=== PATIENT | female | born 1985 | race African-American/Black ===

== ENCOUNTER 2016-11-23 18:52 | Day surgery (SDC) | payer BC ==
[2016-11-23 19:47] VITALS: BMI 29.7
[2016-11-23] MEDS ORDERED: morphine CARPU-JECT 4 MG/1 ML DISP.SYRIN IVPUSH ONE (20:17)
[2016-11-23] MEDS ORDERED: SODIUM CHLORIDE 1,000 ML IV STA (20:17)
[2016-11-23] MEDS ORDERED: morphine CARPU-JECT 4 MG/1 ML DISP.SYRIN ONE (20:25)
[2016-11-23 20:34] LABS: URINE APPEARANCE CLEAR; URINE BILIRUBIN NEGATIVE (NEGATIVE); URINE BLOOD NEGATIVE (NEGATIVE); URINE COLOR LT. YELLOW; URINE GLUCOSE (UA) NEGATIVE (NEGATIVE); URINE KETONE NEGATIVE (NEGATIVE); URINE LEUK ESTERASE NEGATIVE (NEGATIVE); URINE NITRITE NEGATIVE (NEGATIVE); URINE PROTEIN NEGATIVE (NEGATIVE); URINE UROBILINOGEN 0.2 E.U/dl E.U./dl (0.2-1.0)
[2016-11-23 20:45] LABS: BASOPHIL 0.4 % (0-2.0); MCH 27.5 pg (25.7-33.7); MCHC 32.5 g/dl (32.0-36.0); MEAN CELL VOLUME 84.6 fl (80-96); MEAN PLT VOLUME 7.3 fl (7.5-11.1); NEUTROPHILS 38.7 % (42.8-82.8); PLATELET COUNT 408 K/MM3 (134-434); RDW 13.3 % (11.6-15.6)
[2016-11-23 21:14] LABS: ALBUMIN 3.7 g/dl (3.4-5.0); BILIRUBIN,TOTAL 0.2 mg/dL (0.2-1.0); CALCIUM 9.5 mg/dL (8.5-10.1); CREATININE 1.1 mg/dL (0.55-1.02); TOT PROT 7.5 g/dl (6.4-8.2)
--- NOTE | 2016-11-23 23:00 | PDOC ---
History of Present Illness - General History Source: Patient Exam Limitations: No Limitations - History of Present Illness Initial Comments: 11/23/16 23:08 The patient is a 31 year old female, with a significant past medical history of endometriosis and right sided ovarian cyst, who presents to the emergency department with right sided pelvic pain onset 3 days ago that worsened today. She states that the pain was onset gradually throughout the day. She reports that her pain is a constant, sharp pressure, ranging from mild to moderate, without radiation or modifying factors. She states that she took 4 tablets of ibuprofen, which has not helped her pain. She notes that this pain feels like her endometriosis. The patient denies chest pain, shortness of breath, headache and dizziness. Denies fever, chills, nausea, vomit, diarrhea and constipation. Denies dysuria, frequency, urgency and hematuria. LMP: 11/12/2016 Allergies: None Past surgical history: None reported Social history: No alcohol, tobacco or drug use reported <Rk Garcia - Last Filed: 11/24/16 00:17> - General History Source: Patient, Old Records Exam Limitations: No Limitations <PhamRayshawn - Last Filed: 11/24/16 00:36> - General Chief Complaint: Pain Stated Complaint: PELVIC PAIN Time Seen by Provider: 11/23/16 20:05 Past History <Rk Garcia - Last Filed: 11/24/16 00:17> - Past Medical History Anemia: No Asthma: No Cancer: No Cardiac Disorders: No CVA: No COPD: No CHF: No Dementia: No Diabetes: No GI Disorders: No Disorders: No HTN: No Hypercholesterolemia: No Liver Disease: No Seizures: No Thyroid Disease: No Other medical history: Endometreosis - Surgical History Abdominal Surgery: No Appendectomy: No Cardiac Surgery: No Cholecystectomy: No Lung Surgery: No Neurologic Surgery: No Orthopedic Surgery: No - Reproductive History Is Patient Now?: No - Immunization History Td Vaccination: Yes Immunization Up to Date: Yes - Psycho/Social/Smoking Cessation Hx Anxiety: No Suicidal Ideation: No Smoking Status: Yes Smoking History: Former smoker Have you smoked in the past 12 months: No Number of Cigarettes Smoked Daily: 0 If you are a former smoker, when did you quit?: 2013 Information on smoking cessation initiated: No 'Breaking Loose' booklet given: 02/17/15 Hx Alcohol Use: No Drug/Substance Use Hx: No Substance Use Type: None Hx Substance Use Treatment: No <PhamRayshawn - Last Filed: 11/24/16 00:36> - Past Medical History Allergies/Adverse Reactions: Allergies Allergy/AdvReac Type Severity Reaction Status Date / Time No Known Drug Allergies Allergy Verified 11/23/16 19:41 Home Medications: Ambulatory Orders Norethindrone-E.estradiol-Iron [Lo Loestrin Fe 1-10 Tablet] 1 tab PO HS Review of Systems - Review of Systems Able to Perform ROS?: Yes Comments:: 11/23/16 23:08 GENERAL/CONSTITUTIONAL: No fever or chills. No weakness. HEAD, EYES, EARS, NOSE AND THROAT: No change in vision. No ear pain or discharge. No sore throat. CARDIOVASCULAR: No chest pain or shortness of breath RESPIRATORY: No cough, wheezing, or hemoptysis. GASTROINTESTINAL: +Right sided pelvic pain. No nausea, vomiting, diarrhea or constipation. GENITOURINARY: No dysuria, frequency, or change in urination. MUSCULOSKELETAL: No joint or muscle swelling or pain. No neck or back pain. SKIN: No rash NEUROLOGIC: No headache, vertigo, loss of consciousness, or change in strength/ sensation. ENDOCRINE: No increased thirst. No abnormal weight change HEMATOLOGIC/LYMPHATIC: No anemia, easy bleeding, or history of blood clots. ALLERGIC/IMMUNOLOGIC: No hives or skin allergy. <Rk Garcia - Last Filed: 11/24/16 00:17> *Physical Exam - Vital Signs Last Vital Signs Temp Pulse Resp BP Pulse Ox 98.7 F 84 16 121/65 100 11/23/16 19:43 11/23/16 19:43 11/23/16 19:43 11/23/16 19:43 11/23/16 19:43 - Physical Exam Comments: 11/23/16 23:09 GENERAL: Awake, alert, and fully oriented, in no acute distress HEAD: No signs of trauma, normocephalic, atraumatic EYES: PERRLA, EOMI, sclera anicteric, conjunctiva clear ENT: Auricles normal inspection, hearing grossly normal, nares patent, oropharynx clear without exudates. Moist mucosa NECK: Normal ROM, supple, no lymphadenopathy, JVD, or masses LUNGS: No distress, speaks full sentences, clear to auscultation bilaterally HEART: Regular rate and rhythm, normal S1 and S2, no murmurs, rubs or gallops, peripheral pulses normal and equal bilaterally. ABDOMEN: +Right lower quadrant tenderness to palpation. Soft, normoactive bowel sounds. No guarding, no rebound. No masses EXTREMITIES: Normal inspection, Normal range of motion, no edema. No clubbing or cyanosis. NEUROLOGICAL: Cranial nerves II through XII grossly intact. Normal speech, normal gait, no focal sensorimotor deficits SKIN: Warm, Dry, normal turgor, no rashes or lesions noted. <Rk Garcia - Last Filed: 11/24/16 00:17> - Vital Signs Last Vital Signs Temp Pulse Resp BP Pulse Ox 98.7 F 84 16 121/65 100 11/23/16 19:43 11/23/16 19:43 11/23/16 19:43 11/23/16 19:43 11/23/16 19:43 <Rayshawn Nath - Last Filed: 11/24/16 00:36> ED Treatment Course - LABORATORY CBC & Chemistry Diagram: 11/23/16 20:20 11/23/16 20:20 - ADDITIONAL ORDERS Additional order review: Laboratory Results 11/23/16 11/23/16 20:20 20:10 Sodium 139 Potassium 3.7 Chloride 104 Carbon Dioxide 30 Anion Gap 5 L BUN 5 L D Creatinine 1.1 H D Creat Clearance w eGFR 58.32 Random Glucose 110 H D Calcium 9.5 Total Bilirubin 0.2 AST 7 L D ALT 22 Alkaline Phosphatase 47 Total Protein 7.5 Albumin 3.7 Urine Color Lt. yellow Urine Appearance Clear Urine pH 6.0 Ur Specific [place] <= 1.005 Urine Protein Negative Urine Glucose (UA) Negative Urine Ketones Negative Urine Blood Negative Urine Nitrite Negative Urine Bilirubin Negative Urine Urobilinogen 0.2 e.u/dl Ur Leukocyte Esterase Negative Urine HCG, Qual Negative 11/23/16 20:20 RBC 4.62 MCV 84.6 MCHC 32.5 RDW 13.3 D MPV 7.3 L Neutrophils % 38.7 L D Lymphocytes % 51.1 H D Monocytes % 7.8 Eosinophils % 2.0 Basophils % 0.4 - RADIOLOGY Radiograph Interpretation: 11/23/16 23:09 Transvaginal ultrasound Reviewed by: Dr. Raleigh Beasley Impression: Almost borderline thickening of the endometrial stripe. Left ovarian hypoechoic density measuring 2.9 x 2.7 cm likely representing a hemorrhagic cyst. CT abdomen and pelvis with contrast Reviewed by: Dr. Silvina Guadarrama Impression: Mildly dilated fluid-filled appendix seen in the right lower quadrant measuring up to 7.5 mm in diameter with surrounding fat stranding and right lower quadrant adenopathy. These findings can be seen in the setting of appendicitis. No abscess. No pneumoperitoneum. No bowel obstruction. Nonspecific fluid levels in the small and large bowel with prominence of the because. Correlate clinically 2 exclude concurrent enterocolitis. Small fat containing ventral hernia. There is a prominent 3.5 cm left adnexal cyst. Prominence of the endometrium with heterogeneous enhancement of the uterus. Correlate with menstrual cycle. - Medications Given in the ED: ED Medications Discontinued Medications Generic Name Dose Route Start Last Admin Trade Name Freq PRN Reason Stop Dose Admin Sodium Chloride 1,000 mls @ 1,000 mls/hr 11/23/16 20:17 11/23/16 20:30 Normal Saline - IV 11/23/16 21:16 1,000 mls/hr ASDIR STA Administration Morphine Sulfate 4 mg 11/23/16 20:17 11/23/16 20:30 Morphine Injection - IVPUSH 11/23/16 20:18 4 mg ONCE ONE Administration <Rk Garcia - Last Filed: 11/24/16 00:17> - LABORATORY CBC & Chemistry Diagram: 11/23/16 20:20 11/23/16 20:20 - ADDITIONAL ORDERS Additional order review: Laboratory Results 11/23/16 11/23/16 20:20 20:10 Sodium 139 Potassium 3.7 Chloride 104 Carbon Dioxide 30 Anion Gap 5 L BUN 5 L D Creatinine 1.1 H D Creat Clearance w eGFR 58.32 Random Glucose 110 H D Calcium 9.5 Total Bilirubin 0.2 AST 7 L D ALT 22 Alkaline Phosphatase 47 Total Protein 7.5 Albumin 3.7 Urine Color Lt. yellow Urine Appearance Clear Urine pH 6.0 Ur Specific [place] <= 1.005 Urine Protein Negative Urine Glucose (UA) Negative Urine Ketones Negative Urine Blood Negative Urine Nitrite Negative Urine Bilirubin Negative Urine Urobilinogen 0.2 e.u/dl Ur Leukocyte Esterase Negative Urine HCG, Qual Negative 11/23/16 20:20 RBC 4.62 MCV 84.6 MCHC 32.5 RDW 13.3 D MPV 7.3 L Neutrophils % 38.7 L D Lymphocytes % 51.1 H D Monocytes % 7.8 Eosinophils % 2.0 Basophils % 0.4 - RADIOLOGY Radiology Studies Ordered: Category Date Time Status ABDOMEN & PELVIS CT WITH CONTR [CT] Stat CT Scan 11/23/16 20:16 Taken TRANSVAGINAL ULTRASOUND US [US] Stat Ultrasound 11/23/16 20:16 Completed - Medications Given in the ED: ED Medications Discontinued Medications Generic Name Dose Route Start Last Admin Trade Name Freq PRN Reason Stop Dose Admin Sodium Chloride 1,000 mls @ 1,000 mls/hr 11/23/16 20:17 11/23/16 20:30 Normal Saline - IV 11/23/16 21:16 1,000 mls/hr ASDIR STA Administration Morphine Sulfate 4 mg 11/23/16 20:17 11/23/16 20:30 Morphine Injection - IVPUSH 11/23/16 20:18 4 mg ONCE ONE Administration <Rayshawn Nath - Last Filed: 11/24/16 00:36> Medical Decision Making - Medical Decision Making 11/23/16 22:58 A portion of this note was documented by scribe services under my direction. I have reviewed the details of the note, within reason, and agree with the documentation with the following case summary and management plan written by me. Patient treated in the ED. Nursing notes are reviewed and incorporated into the medical decision-making. Vital signs reviewed. Peripheral IV access obtained by the nurse, laboratory studies are drawn and sent, reviewed and interpreted by myself. Vital Signs Temp Pulse Resp BP Pulse Ox 98.7 F 84 16 121/65 100 11/23/16 19:43 11/23/16 19:43 11/23/16 19:43 11/23/16 19:43 11/23/16 19:43 31-year-old female with past medical history of endometriosis, ovarian cysts presents to the emergency department for right lower quadrant pain. Patient start develop a constant right lower quadrant pain without associated nausea or vomiting. No fevers or chills. Denies dysuria or vaginal bleeding. Patient is unsure if this is her cyst but reports that her last menstrual period was 2 weeks ago. I suspect that this is a ruptured ovarian cyst. However, with the right lower quadrant pain, we'll need to rule out acute appendicitis. We'll obtain a transvaginal ultrasound as well as a CT abdomen pelvis and treat with pain medications. Reassess. 11/24/16 00:25 Ultrasound reviewed. Appears to have a left sided hemorrhagic cyst. CT scan obtained. Demonstrates acute appendicitis. Zosyn ordered. Consultation placed in for Dr. Jose Patel. CBC, BMP 11/23/16 20:20 11/23/16 20:20 CMP Sodium 139 mmol/L (136-145) 11/23/16 20:20 Potassium 3.7 mmol/L (3.5-5.1) 11/23/16 20:20 Chloride 104 mmol/L (98-107) 11/23/16 20:20 Carbon Dioxide 30 mmol/L (21-32) 11/23/16 20:20 Anion Gap 5 (8-16) L 11/23/16 20:20 BUN 5 mg/dL (7-18) L D 11/23/16 20:20 Creatinine 1.1 mg/dL (0.55-1.02) H D 11/23/16 20:20 Creat Clearance w eGFR 58.32 (>60) 11/23/16 20:20 Random Glucose 110 mg/dL (74-106) H D 11/23/16 20:20 Calcium 9.5 mg/dL (8.5-10.1) 11/23/16 20:20 Total Bilirubin 0.2 mg/dL (0.2-1.0) 11/23/16 20:20 AST 7 U/L (15-37) L D 11/23/16 20:20 ALT 22 U/L (12-78) 11/23/16 20:20 Alkaline Phosphatase 47 U/L (45-117) 11/23/16 20:20 Total Protein 7.5 g/dl (6.4-8.2) 11/23/16 20:20 Albumin 3.7 g/dl (3.4-5.0) 11/23/16 20:20 Urine Test Results Urine Color Lt. yellow 11/23/16 20:10 Urine Appearance Clear 11/23/16 20:10 Urine pH 6.0 (5.0-8.0) 11/23/16 20:10 Ur Specific [place] <= 1.005 (1.001-1.035) 11/23/16 20:10 Urine Protein Negative (NEGATIVE) 11/23/16 20:10 Urine Glucose (UA) Negative (NEGATIVE) 11/23/16 20:10 Urine Ketones Negative (NEGATIVE) 11/23/16 20:10 Urine Blood Negative (NEGATIVE) 11/23/16 20:10 Urine Nitrite Negative (NEGATIVE) 11/23/16 20:10 Urine Bilirubin Negative (NEGATIVE) 11/23/16 20:10 Ur Leukocyte Esterase Negative (NEGATIVE) 11/23/16 20:10 Urine test is negative. Case discussed with Dr. Hanson, who accepts the patient to med/surg admission. Case discussed in detail with admitting physician including history, physical exam and ancillary studies. Admitting physician has assumed care for the patient, will follow all pending diagnostics and will complete the evaluation and treatment. <Rayshawn Nath - Last Filed: 11/24/16 00:36> *DC/Admit/Observation/Transfer - Attestations Scribe Attestion: 11/23/16 23:09 Documentation prepared by Rk Garcia, acting as medical director of hospice for Rayshawn Nath MD. <Rk Garcia - Last Filed: 11/24/16 00:17> - Discharge Dispostion Admit: Yes <Rayshawn Nath - Last Filed: 11/24/16 00:36> Diagnosis at time of Disposition: Appendicitis Qualifiers: Appendicitis type: acute appendicitis Acute appendicitis type: unspecified acute appendicitis type Qualified Code(s): K35.80 - Unspecified acute appendicitis - Discharge Dispostion Condition at time of disposition: Stable - Referrals Referrals: STAFF,NOT ON [Primary Care Provider] -
[2016-11-24] MEDS ORDERED: PIPERACILLIN/TAZOB 3.375 GM/50 ML PRE-DOCKED IVPB ONE (00:16)
--- NOTE | 2016-11-24 00:30 | PN ---
<Larry Hanson - Last Filed: 11/24/16 00:30> Teaching Attending Note Name of Resident: Estefanía Meza ATTENDING PHYSICIAN STATEMENT I saw and evaluated the patient. I reviewed the resident's note and discussed the case with the resident. I agree with the resident's findings and plan as documented. SUBJECTIVE: OBJECTIVE: ASSESSMENT AND PLAN: <Juan Fanke - Last Filed: 11/24/16 01:54> Teaching Attending Note ATTENDING PHYSICIAN STATEMENT I saw and evaluated the patient. I reviewed the resident's note and discussed the case with the resident. I agree with the resident's findings and plan as documented. SUBJECTIVE: The patient is a 31 year old female, with a significant past medical history of PCOS, endometriosis and right sided ovarian cyst, who presents to the emergency department with RLQ pain x3 days ago that worsened today. She states that the pain was onset gradually throughout the day. The patients states that she took motrin with minimal relief of her symptoms. The patient notes that her LMP was 11/12/16. OBJECTIVE: Physical: VS: Last Vital Signs Temp Pulse Resp BP Pulse Ox 98.6 F 80 20 118/74 100 11/24/16 00:00 11/24/16 00:00 11/24/16 00:00 11/24/16 00:00 11/24/16 00:00 GEN: NAD HEENT: NCAT, PERRL CARD: RRR, S1 S2 RESP: CTAB ABD: RLQ tenderness to palpation, BWS x4 EXT: CCE Labs: CBCD WBC 9.0 K/mm3 (4.0-10.0) 11/23/16 20:20 RBC 4.62 M/mm3 (3.60-5.2) 11/23/16 20:20 Hgb 12.7 GM/dL (10.7-15.3) 11/23/16 20:20 Hct 39.1 % (32.4-45.2) 11/23/16 20:20 MCV 84.6 fl (80-96) 11/23/16 20:20 MCHC 32.5 g/dl (32.0-36.0) 11/23/16 20:20 RDW 13.3 % (11.6-15.6) D 11/23/16 20:20 Plt Count 408 K/MM3 (134-434) 11/23/16 20:20 MPV 7.3 fl (7.5-11.1) L 11/23/16 20:20 CMP Sodium 139 mmol/L (136-145) 11/23/16 20:20 Potassium 3.7 mmol/L (3.5-5.1) 11/23/16 20:20 Chloride 104 mmol/L (98-107) 11/23/16 20:20 Carbon Dioxide 30 mmol/L (21-32) 11/23/16 20:20 Anion Gap 5 (8-16) L 11/23/16 20:20 BUN 5 mg/dL (7-18) L D 11/23/16 20:20 Creatinine 1.1 mg/dL (0.55-1.02) H D 11/23/16 20:20 Creat Clearance w eGFR 58.32 (>60) 11/23/16 20:20 Calcium 9.5 mg/dL (8.5-10.1) 11/23/16 20:20 Total Bilirubin 0.2 mg/dL (0.2-1.0) 11/23/16 20:20 AST 7 U/L (15-37) L D 11/23/16 20:20 ALT 22 U/L (12-78) 11/23/16 20:20 Alkaline Phosphatase 47 U/L (45-117) 11/23/16 20:20 Total Protein 7.5 g/dl (6.4-8.2) 11/23/16 20:20 Albumin 3.7 g/dl (3.4-5.0) 11/23/16 20:20 Imaging: CT Abdomen Impression: Mildly dilated fluid-filled appendix seen in the right lower quadrant measuring up to 7.5 mm in diameter with surrounding fat stranding and right lower quadrant adenopathy. These findings can be seen in the setting of appendicitis. No abscess. No pneumoperitoneum. No bowel obstruction. Nonspecific fluid levels in the small and large bowel with prominence of the because. Correlate clinically 2 exclude concurrent enterocolitis. Small fat containing ventral hernia. ASSESSMENT AND PLAN: The patient is a 31 year old female, with a significant past medical history of endometriosis and right sided ovarian cyst, who presents to the emergency department with right sided pelvic pain. 1.Acute appendicitis -NPO -IVF -Type and screen -Continue Zosyn -ID consult for approval -Pain control -Put in coag for AM -Repeat CBC in AM 2.Left sided cyst -outpatient OB follow up 3.DVD PPX -Low risk -SCD Admit to med surg Documentation prepared by Bam Fan, acting as medical observer for Larry Hanson D.O.
[2016-11-24] MEDS ORDERED: morphine CARPU-JECT 2 MG/1 ML DISP.SYRIN IVPUSH PRN (01:08)
[2016-11-24] MEDS ORDERED: SODIUM CHLORIDE 1,000 ML IV SCH ×2 (01:15→14:04)
[2016-11-24] MEDS ORDERED: PIPERACILLIN/TAZOB 3.375 GM 50 ML IVPB ONE ×2 (01:36→14:04)
--- NOTE | 2016-11-24 01:47 | HP ---
CHIEF COMPLAINT: Abdominal pain PCP: HISTORY OF PRESENT ILLNESS: The patient is a 31 year old female with a past medical history of endometriosis , PCOS and left sided ovarian cyst presents with RLQ abdominal pain that started today in the morning. The pain is sharp, intermittent, 8-10/10, no radiation, no aggravating/alleviating factors. She took OTC pain medications without any improvement. She states that this pain feels like her endometriosis pain but is much more severe. The patient denies N/V, diarrhea, constipation, change in stool color. Last BM was today and it was normal. Her LMP was two weeks ago, regular 4-5 days. She denies dysuria, increased frequency , urgency, fever, chills. ER course was notable for: (1)CT abdomen, (2)transvaginal US Recent Travel: No PAST MEDICAL HISTORY: endometriosis, PCOS, left sided ovarian cyst:laparoscopic removal in January 2016 PAST SURGICAL HISTORY: laparoscopy Social History: Smoking:quit 3 years ago, smoked 1 pack/month Alcohol:Denies Drugs:Denies Family History: Father: DM type 2, HTN, HLD, on dialysis, in 2015 Mother; healthy Allergies: No Known Drug Allergies Allergy (Verified 11/23/16 19:41) HOME MEDICATIONS: Medication Instructions Recorded Norethindrone-E.estradiol-Iron [Lo 1 tab PO HS 01/13/16 Loestrin Fe 1-10 Tablet] Metformin Spironolactone 1 tab BID 1 tab BID REVIEW OF SYSTEMS CONSTITUTIONAL: Absent: fever, chills, diaphoresis, generalized weakness, malaise, loss of appetite, weight change HEENT: Absent: rhinorrhea, nasal congestion, throat pain, throat swelling, difficulty swallowing, mouth swelling, ear pain, eye pain, visual changes CARDIOVASCULAR: Absent: chest pain, syncope, palpitations, irregular heart rate, lightheadedness , peripheral edema RESPIRATORY: Absent: cough, shortness of breath, dyspnea with exertion, orthopnea, wheezing, stridor, hemoptysis GASTROINTESTINAL: abdominal pain Absent: abdominal distension, nausea, vomiting, diarrhea, constipation, melena, hematochezia GENITOURINARY: Absent: dysuria, frequency, urgency, hesitancy, hematuria, flank pain, genital pain MUSCULOSKELETAL: Absent: myalgia, arthralgia, joint swelling, back pain, neck pain SKIN: Absent: rash, itching, pallor HEMATOLOGIC/IMMUNOLOGIC: Absent: easy bleeding, easy bruising, lymphadenopathy, frequent infections ENDOCRINE: Absent: unexplained weight gain, unexplained weight loss, heat intolerance, cold intolerance NEUROLOGIC: Absent: headache, focal weakness or paresthesias, dizziness, unsteady gait, seizure, mental status changes, bladder or bowel incontinence PSYCHIATRIC: Absent: anxiety, depression, suicidal or homicidal ideation, hallucinations. PHYSICAL EXAMINATION Vital Signs - 24 hr 11/23/16 19:43 Temperature 98.7 F Pulse Rate 84 Respiratory 16 Rate Blood Pressure 121/65 O2 Sat by Pulse 100 Oximetry (%) GENERAL: Awake, alert, and fully oriented, in no acute distress. HEAD: Normal with no signs of trauma. EYES: Pupils equal, round and reactive to light, extraocular movements intact, sclera anicteric, conjunctiva clear. No lid lag. EARS, NOSE, THROAT: Ears normal, nares patent, oropharynx clear without exudates. Moist mucous membranes. NECK: Normal range of motion, supple without lymphadenopathy, JVD, or masses. LUNGS: Breath sounds equal, clear to auscultation bilaterally. No wheezes, and no crackles. No accessory muscle use. HEART: Regular rate and rhythm, normal S1 and S2 without murmur, rub or gallop. ABDOMEN: Soft, tender to palpation in RLQ, no guarding, Rovsing sign negative, not distended, normoactive bowel sounds, no rebound, no masses. No hepatomegaly or splenomegaly. MUSCULOSKELETAL: Normal range of motion at all joints. No bony deformities or tenderness. No CVA tenderness. UPPER EXTREMITIES: 2+ pulses, warm, well-perfused. No cyanosis. No clubbing. Cap refill <2 seconds. No peripheral edema. LOWER EXTREMITIES: 2+ pulses, warm, well-perfused. No calf tenderness. No peripheral edema. NEUROLOGICAL: Cranial nerves II-XII intact. Normal speech. Normal gait. PSYCHIATRIC: Cooperative. Good eye contact. Appropriate mood and affect. SKIN: Warm, dry, normal turgor, no rashes or lesions noted, tattoo on lower back present. Laboratory Results - last 24 hr 11/23/16 11/23/16 11/23/16 20:10 20:20 20:20 WBC 9.0 RBC 4.62 Hgb 12.7 Hct 39.1 MCV 84.6 MCHC 32.5 RDW 13.3 D Plt Count 408 MPV 7.3 L Neutrophils % 38.7 L D Lymphocytes % 51.1 H D Monocytes % 7.8 Eosinophils % 2.0 Basophils % 0.4 Sodium 139 Potassium 3.7 Chloride 104 Carbon Dioxide 30 Anion Gap 5 L BUN 5 L D Creatinine 1.1 H D Creat Clearance w eGFR 58.32 Random Glucose 110 H D Calcium 9.5 Total Bilirubin 0.2 AST 7 L D ALT 22 Alkaline Phosphatase 47 Total Protein 7.5 Albumin 3.7 Urine Color Lt. yellow Urine Appearance Clear Urine pH 6.0 Ur Specific [place] <= 1.005 Urine Protein Negative Urine Glucose (UA) Negative Urine Ketones Negative Urine Blood Negative Urine Nitrite Negative Urine Bilirubin Negative Urine Urobilinogen 0.2 e.u/dl Ur Leukocyte Esterase Negative Urine HCG, Qual Negative CT abdomen/pelvis: Mildly dilated fluid-filled appendix seen in the right lower quadrant measuring up to 7.5 mm in diameter with surrounding fat stranding and right lower quadrant adenopathy. These findings can be seen in the setting of appendicitis. No abscess. No pneumoperitoneum. No bowel obstruction. Nonspecific fluid levels in the small and large bowel with prominence of the because. Correlate clinically 2 exclude concurrent enterocolitis. Small fat containing ventral hernia. There is a prominent 3.5 cm left adnexal cyst. Prominence of the endometrium with heterogeneous enhancement of the uterus. Correlate with menstrual cycle. Transvaginal US: Almost borderline thickening of the endometrial stripe.. Left ovarian hypoechoic density measuring 2.9 x 2.7 cm likely representing a hemorrhagic cyst. Follow-up pelvis ultrasound in first week of the next menstrual cycle is recommended for further evaluation ASSESSMENT/PLAN: The patient is a 31 year old female with a past medical history of endometriosis , PCOS and left sided ovarian cyst presents with RLQ abdominal pain that started today in the morning. The pain is sharp, intermittent, 8-10/10, no radiation, no aggravating/alleviating factors. She took OTC pain medications without any improvement. The pt is admitted for appendicitis. RLQ abdominal pain due to appendicitis: -pain control: Morphine 2 mg Q4H -surgery consultation -ID consultation -NPO -coags in Am -CBC, BMP in AM -continue Zosyn 3.375 mg -NS at rate 125 ml/hr Left sided ovarian cyst: -f/u in outpatient FUR CLIPPER DVT PPX: -SCDs F/E/N: NS/No changes/NPO Disposition: Admission to Med surg. Visit type - Emergency Visit Emergency Visit: Yes Care time: The patient presented to the Emergency Department on the above date and was hospitalized for further evaluation of their emergent condition. - New Patient This patient is new to me today: Yes Date on this admission: 11/24/16 - Critical Care Critical Care patient: No
[2016-11-24] MEDS ORDERED: PIPERACILLIN/TAZOB 3.375 GM 3.375 GM in DEXTROSE 5%-WATER - 50 ML IVPB ONE (06:00)
[2016-11-24 07:33] LABS: MCH 29.1 pg (25.7-33.7); MCHC 34.4 g/dl (32.0-36.0); MEAN CELL VOLUME 84.4 fl (80-96); MEAN PLT VOLUME 7.3 fl (7.5-11.1); PLATELET COUNT 332 K/MM3 (134-434); RDW 13.4 % (11.6-15.6); WHITE BLOOD COUNT 5.4 K/mm3 (4.0-10.0)
[2016-11-24 08:09] LABS: INR 1.09 (0.82-1.09)
[2016-11-24 08:18] LABS: CALCIUM 8.9 mg/dL (8.5-10.1); CREATININE 1.1 mg/dL (0.55-1.02)
--- NOTE | 2016-11-24 10:54 | CONSULT ---
Consult Consult Specialty:: surgery Reason for Consultation:: appendicitis - History of Present Illness Chief Complaint: RLQ pain History of Present Illness: pt is a 31F with 1 day hx of RLQ pain. No N/V/D. No fever/chills. hungry. Hx of cyst and workup in ED included CT which shows appendicitis. patient has hx of endometriosis. - History Source History Provided By: Patient Limitations to Obtaining History: No Limitations - Past Medical History Reproductive: Yes: Endometriosis, Polycystic Ovary Syndrome ...LMP: 11/13/16 ...: No - Alcohol/Substance Use Hx Alcohol Use: No (very occassional) - Smoking History Smoking history: Former smoker Have you smoked in the past 12 months: No Aproximately how many cigarettes per day: 0 If you are a former smoker, when did you quit?: 2013 Home Medications - Allergies Allergies/Adverse Reactions: Allergies Allergy/AdvReac Type Severity Reaction Status Date / Time No Known Drug Allergies Allergy Verified 11/23/16 19:41 - Home Medications Home Medications: Ambulatory Orders Norethindrone-E.estradiol-Iron [Lo Loestrin Fe 1-10 Tablet] 1 tab PO HS Metformin HCl [Glucophage -] 500 mg PO BID 11/24/16 Spironolactone 25 mg PO BID 11/24/16 Family Disease History - Family Disease History Family Disease History: Other: Father (, esrd, htn) Review of Systems - Review of Systems Constitutional: denies: Chills, Fever Eyes: denies: Blind Spots, Blurred Vision HENT: denies: Difficult Swallowing, Ear Discharge Neck: denies: Decreased ROM, Lumps Cardiovascular: denies: Chest Pain, Edema Respiratory: denies: Cough, Exercise Intolerance Gastrointestinal: reports: Abdominal Pain. denies: Melena, Nausea Genitourinary: denies: Discharge, Dysuria Breasts: denies: Pain, Skin Changes Musculoskeletal: denies: Back Pain, Crepitus Integumentary: denies: Blister, Bruising Neurological: denies: Change in LOC, Change in Speech Endocrine: denies: Excessive Sweating, Flushing Hematology/Lymphatic: denies: Easily Bruised, Excessive Bleeding Psychiatric: denies: Altered Sleep Pattern, Anxiety Physical Exam Vital Signs: Vital Signs Temperature 98.7 F 11/24/16 09:55 Pulse Rate 69 11/24/16 09:55 Respiratory Rate 16 11/24/16 09:55 Blood Pressure 144/89 11/24/16 09:55 O2 Sat by Pulse Oximetry (%) 99 11/24/16 10:18 Constitutional: Yes: No Distress, Calm Eyes: Yes: Conjunctiva Clear, EOM Intact HENT: Yes: Atraumatic, Normocephalic Neck: Yes: Supple, Trachea Midline Cardiovascular: Yes: Regular Rate and Rhythm Respiratory: Yes: Regular, CTA Bilaterally Gastrointestinal: Yes: Soft, Tenderness (rlq/ llq . min mild guarding). No: Distention ...Rectal Exam: Yes: Deferred Renal/: No: CVA Tenderness - Left, CVA Tenderness - Right Breast(s): No: Breast Implants, Mass Musculoskeletal: No: Back Pain, Joint Stiffness Extremities: No: Calf Tenderness, Erythema Integumentary: No: Erythema, Rash Neurological: Yes: Alert, Oriented Psychiatric: Yes: Alert, Oriented Labs: CBC, BMP 11/24/16 06:25 11/24/16 06:25 Imaging - Results Cat Scan: Report Reviewed, Image Reviewed Problem List - Problems (1) Appendicitis Assessment/Plan: for lap appy r/b/a d/w pt likely d/c home postop postop instructions given to mom f/u 1-2 weeks will give rx for pain meds Code(s): K37 - UNSPECIFIED APPENDICITIS Qualifiers: Appendicitis type: acute appendicitis Acute appendicitis type: unspecified acute appendicitis type Qualified Code(s): K35.80 - Unspecified acute appendicitis (2) Ovarian cyst Code(s): N83.20 - UNSPECIFIED OVARIAN CYSTS * DO NOT USE * (3) Polycystic ovary disease Code(s): E28.2 - POLYCYSTIC OVARIAN SYNDROME (4) Endometriosis Code(s): N80.9 - ENDOMETRIOSIS, UNSPECIFIED
[2016-11-24] MEDS ORDERED: LIDOCAINE HCL/PF 2% SDV 5ML VIAL ONE (10:56)
[2016-11-24] MEDS ORDERED: PROPOFOL 20 ML ONE ×2 (10:57→11:00)
[2016-11-24] MEDS ORDERED: ROCURONIUM BROMIDE 50 MG/5 ML VIAL ONE (10:57)
[2016-11-24] MEDS ORDERED: MIDAZOLAM HCL 2 MG/2 ML SINGLE DOSE VIAL ONE (10:57)
[2016-11-24] MEDS ORDERED: DEXAMETHASONE SOD PHOSPHATE 4 MG/1 ML VIAL ONE (11:15)
[2016-11-24] MEDS ORDERED: GLYCOPYRROLATE 0.2 MG/1 ML VIAL ONE ×2 (11:31)
[2016-11-24] MEDS ORDERED: NEOSTIGMINE METHYLSULFATE 0.5 MG/ML - 10 ML MDV ONE (11:31)
[2016-11-24] MEDS ORDERED: KETOROLAC TROMETHAMINE 30 MG/1 ML VIAL ONE (11:46)
[2016-11-24] MEDS ORDERED: OXYCODONE/APAP 5/325MG COMBO TABLET PO PRN ×2 (12:11)
[2016-11-24] MEDS ORDERED: ONDANSETRON 4 MG/2 ML VIAL IVPB PRN (12:12)
--- NOTE | 2016-11-24 12:14 | OP ---
Operative Note - Note: Operative Date: 11/24/16 Pre-Operative Diagnosis: appendicitis Operation: laparoscopic appendectomy Findings: min mild inflammed appendix Post-Operative Diagnosis: Same as Pre-op Surgeon: Jose Patel Anesthesia: General Specimens Removed: appendix Estimated Blood Loss (mls): 20 Operative Report Dictated: Yes
--- NOTE | 2016-11-24 12:15 | DS ---
Physical Exam: SUBJECTIVE: Patient seen and examined per procedure. Stated the pain medication reduced pain to 5/10. Prepared for surgery. Mother at bedside. OBJECTIVE: Vital Signs Period Temp Pulse Resp BP Sys/Patiño Pulse Ox Last 24 Hr 98.1 F-98.7 F 69-75 16-18 113-144/70-89 99-100 PE Neuro: alert, awake, cn 2-12intact Pulm: CTAB CV: s1 s2 rrr no mrg Abd: RLQ tenderness, tenderness to palpation, soft Ext: warm, no edema Laboratory Results - last 24 hr 11/24/16 11/24/16 11/24/16 06:20 06:25 06:25 WBC 5.4 D RBC 4.11 Hgb 12.0 Hct 34.7 MCV 84.4 MCHC 34.4 RDW 13.4 Plt Count 332 MPV 7.3 L INR 1.09 PTT (Actin FS) 28.0 Sodium Potassium Chloride Carbon Dioxide Anion Gap BUN Creatinine Random Glucose Calcium Blood Type Antibody Screen 11/24/16 11/24/16 06:25 06:25 WBC RBC Hgb Hct MCV MCHC RDW Plt Count MPV INR PTT (Actin FS) Sodium 143 Potassium 4.2 Chloride 110 H Carbon Dioxide 24 Anion Gap 9 BUN 6 L Creatinine 1.1 H Random Glucose 89 Calcium 8.9 Blood Type B POSITIVE Antibody Screen Negative HOSPITAL COURSE: Date of Admission:11/24/16 Date of Discharge: 11/24/16 Minutes to complete discharge: 35 Discharge Summary Reason For Visit: APPENDICITIS Current Active Problems Appendicitis (Acute) Endometriosis (Acute) Hospital Course: Initial Hospital Course: Briefly this 31 year old female with a past medical history of endometriosis, PCOS (on metformin and spirnolactone) and left sided ovarian cyst presented with RLQ abdominal pain which acute started in the AM of admission. The pain was sharp, intermittent, 8-10/10, no radiation, no aggravating/alleviating factors. She took OTC pain medications without any improvement. The pain felt like her endometriosis pain but was much more severe. Unchanged BM. Her LMP was two weeks ago, regular 4-5 days. Hospital Course: Pt was taken to or for laproscopic appendectomy 11/24. Minimal mild inflamed appendix noted. She was give x1 dose of zosyn in ED. No antibiotics on discharge. Home with pain mediation and surgical follow up up in 1-[address] Patel. Resume home medications as directed with PCP follow up in 1-2 weeks Condition: Good - Instructions Diet, Activity, Other Instructions: regular diet okay. can shower tomorrow on 11/25. no heavy lifting of 30lbs x 3 weeks. call office to make f/u appt for 1-2 weeks from now . please take laxatives with pain medication. Referrals: Jose Patel MD [Staff Physician] - STAFF,NOT ON [Primary Care Provider] - 3 Weeks (EXTRUDER OPERATOR HORIZONTAL followup [facility]) - Home Medications Comprehensive Discharge Medication List: Ambulatory Orders Norethindrone-E.estradiol-Iron [Lo Loestrin Fe 1-10 Tablet] 1 tab PO HS Metformin HCl [Glucophage -] 500 mg PO BID 11/24/16 Oxycodone HCl/Acetaminophen [Percocet 5-325 mg Tablet] 1 tab PO Q4H PRN #30 tablet MDD 6 tabs 11/24/16 Spironolactone 25 mg PO BID 11/24/16 This patient is new to me today: Yes Date on this admission: 11/24/16 Emergency Visit: Yes Care time: The patient presented to the Emergency Department on the above date and was hospitalized for further evaluation of their emergent condition. Critical Care patient: No - Discharge Referral Referred to [facility] No
[2016-11-24] MEDS ORDERED: PROMETHAZINE HCL 25 MG/1 ML VIAL IVPUSH PRN (12:25)
[2016-11-24] MEDS ORDERED: ACETAMINOPHEN 1000 MG/100 ML VIAL (NON FORMULARY) IVPB PRN (12:26)
[2016-11-24] MEDS ORDERED: HYDROmorphone HCL CARPU-JECT 2 MG/1 ML DISP.SYRIN ONE (12:26)
[2016-11-24] MEDS: HYDROmorphone HCL CARPU-JECT 1 MG/1 ML DISP.SYRIN IVPUSH PRN ×2 (12:28→13:15)
[2016-11-24] MEDS ORDERED: LACTATED RINGERS SOLUTION 1,000 ML IV SCH (12:30)
--- NOTE | 2016-11-24 12:50 | OP ---
DATE OF OPERATION: 11/24/2016 PREOPERATIVE DIAGNOSIS: Appendicitis. POSTOPERATIVE DIAGNOSIS: Appendicitis. SURGEON: Teddy Patel MD ANESTHESIA: General endotracheal anesthesia. BLOOD LOSS: Minimal blood loss, approximately 20 mL. OPERATIVE DETAILS: The patient was brought to the operating room after confirming name, date of , medical record number. She was placed in supine position. SCDs for DVT prophylaxis. She was then induced and intubated by the anesthesiologist. She received appropriate perioperative antibiotics. Her left arm was then tucked and padded. She then had a Joshi catheter placed under sterile conditions. She was then prepped and draped in the usual sterile fashion. A time-out was then performed. A 1-inch supraumbilical incision was made and I bluntly dissected down to the fascia. I scored the fascia with electrocautery and then grabbed the posterior sheath with Annika clamps and lifted the abdominal wall anteriorly. I then cut through it with electrocautery and then used a Annika clamp to go the peritoneum. I then placed my finger inside the abdomen and performed a finger sweep and then placed a 12-mm balloon Eddie type trocar inside the abdomen, insufflated the abdomen to a pressure of 15 mmHg. I then placed a 5-mm trocar in the suprapubic region and 1 in the left lower quadrant. The patient was then placed in Trendelenburg position with some right side up. At this point I was able to gently rotate the cecum and I was able to find a minimally swollen appendix. Given that there was no other pathology, the decision was then made to dissect at the base of the appendix with the [place] dissector and then enlarge this hole with a bowel grasper and then I was able to fit a blue load stapler and take it right at the base of the appendix after taking care not to injure the ileocecal valve. Once the base of the appendix was taken, I then took the mesentery of the appendix with a white load stapler. The specimen was then placed in a specimen retrieval bag and sent off the field for permanent examination. Upon examination, despite a good firing of the stapler, there was some bleeding between renny and this was controlled with 5-mm clips on the mesentery and on the suture line of the colon. After irrigation and aspiration and complete hemostasis, the decision was then made to desufflate the abdomen, remove the specimen, and then close the supraumbilical fascia with a [id number] 0 Vicryl suture. I then reapproximated the skin and subcutaneous tissues with 4-0 Monocryl. Dermabond was then applied. All counts were correct. The Joshi catheter was removed at the end of the operation. TEDDY PATEL M.D. PORSCHE/[id number]
[2016-11-24] MEDS ORDERED: ACETAMINOPHEN 325 MG TABLET (FP) ONE (14:38)
[2016-11-24] MEDS ORDERED: oxyCODONE HCL 5 MG TABLET ONE (14:38)
[2016-11-24] MEDS ORDERED: ACETAMINOPHEN 325 MG TABLET (FP) PO PRN ×2 (15:12→15:13)
[2016-11-24] MEDS ORDERED: oxyCODONE HCL 5 MG TABLET PO PRN ×2 (15:12→15:13)
[2016-11-24 15:37] VITALS: BP 117/77; PULSE 80
[2016-11-24 15:45] VITALS: TEMP 98.8
--- NOTE | 2016-11-28 15:32 | PATH ---
Surgical Pathology Report Patient Name: SKIP WALLER [facility]. Rec. #: [id number] /Age/Gender: 1985 (Age: 31) / F Account: [id number] Location: AMBULATORY SURG Taken: 11/24/2016 Received: 11/24/2016 Reported: 11/28/2016 Physicians: MD Renea Rocha, EJ Specimen(s) Received APPENDIX Clinical History Appendicitis Final Diagnosis APPENDIX, APPENDECTOMY: INVOLVEMENT BY ENDOMETRIOSIS OF THE APPENDIX TIP. Comment: Immunohistochemical stains performed at [place], [place] ([id number]) and interpreted at [facility] show positive staining for ER and CD10, supporting the interpretation above. Electronically Signed Alexandr Beckford M.D. Gross Description Received in formalin, labeled "appendix" is a 5 cm in length vermiform appendix with a stapled margin of resection and moderate attached fat. The serosa is nguyen-pink and smooth. Sectioning reveals a possible mass at the distal tip of the appendix. The remaining cut surface displays a lumen containing brown fecal material. The wall of the appendix averages 0.2 cm. in thickness. Promotions Representative sections are submitted in 2 cassettes as follows: 1-bisected distal tip of appendix; 2-cross sections of appendix. 11/24/201611/24/2016
== END 2016-11-24 15:45 | disposition home or self-care (01) ==
LOC: JER 18:52 → UNDOADMIN 11-24 01:21 → JERBED 11-24 01:21 → JASUSAT 11-24 01:21 → JSAMEDAYSX 11-24 10:09 → JERBED 11-24 10:09 → JASUSAT 11-24 15:45
PROVIDERS: ATTEND Surgery
PROC: 0DTJ4ZZ Resection of Appendix, Percutaneous Endoscopic Approach (ICD-10-PCS; principal; 2016-11-24 10:30)
DX: K37 Unspecified appendicitis (principal)
CPT/HCPCS: 36415; 74177-TC; 76830-TC; 80048; 80053; 81003; 84703; 85025; 85027; 85610; 85730; 86850; 86900; 86901; 87086; 88304-TC; 94760; 99283-25

== ENCOUNTER 2018-09-13 13:52 | Inpatient (IN) | payer BC ==
[2018-09-13 16:10] LABS: URINE APPEARANCE CLEAR; URINE BILIRUBIN NEGATIVE (<2.0 mg/dL); URINE COLOR LTYELLOW; URINE GLUCOSE (UA) NEGATIVE (NEGATIVE); URINE KETONE NEGATIVE (NEGATIVE); URINE LEUK ESTERASE NEGATIVE (NEGATIVE); URINE NITRITE NEGATIVE (NEGATIVE); URINE PROTEIN NEGATIVE (NEGATIVE); URINE UROBILINOGEN NEGATIVE mg/dL (0.2-1.0)
[2018-09-13] MEDS ORDERED: TUBERCULIN PPD 5 TU/0.1ML SYRINGE (IN PATIENT USE ONLY) ID ONE (16:29)
[2018-09-13 16:53] VITALS: BMI 33.3
[2018-09-13] MEDS ORDERED: DINOPROSTONE 10 MG VAGINAL SUPPOSITORY VG ONE (17:15)
[2018-09-13 19:06] LABS: BASO % 0.3 % (0-2.0); EOS % 0.8 % (0-4.5); HEMATOCRIT 35.9 % (32.4-45.2); HEMOGLOBIN 11.9 GM/dL (10.7-15.3); LYMPH % 26.1 % (8-40); MCH 27.9 pg (25.7-33.7); MCHC 33.2 g/dl (32.0-36.0); MEAN CELL VOLUME 84.1 fl (80-96); MEAN PLT VOLUME 6.9 fl (7.5-11.1); MONO % 10.2 % (3.8-10.2); NEUT % 62.6 % (42.8-82.8); PLATELET COUNT 347 K/MM3 (134-434); RBC 4.27 M/mm3 (3.60-5.2); RDW 14.9 % (11.6-15.6); RETICULOCYTES 1.54 % (0.5-1.5); WHITE BLOOD COUNT 7.3 K/mm3 (4.0-10.0)
[2018-09-13 19:30] LABS: ALBUMIN 2.3 g/dl (3.4-5.0); ALK PHOS 169 U/L (45-117); ANION GAP 14 MMOL/L (8-16); BILIRUBIN,TOTAL 0.3 mg/dL (0.2-1); BLOOD UREA NITROGEN 4 mg/dL (7-18); CALCIUM 8.5 mg/dL (8.5-10.1); CHLORIDE 108 mmol/L (98-107); CO2 17 mmol/L (21-32); CREATININE 0.6 mg/dL (0.55-1.3); GAMMA GLUTAMYL TRANSPEPTIDASE 8 U/L (5-85); GLUCOSE,RANDOM 100 mg/dL (74-106); POTASSIUM 3.4 mmol/L (3.5-5.1); SGOT/AST 14 U/L (15-37); SGPT/ALT 23 U/L (13-61); SODIUM 139 mmol/L (136-145); TOT PROT 5.8 g/dl (6.4-8.2); URIC ACID 4.5 mg/dL (2.6-7.2)
[2018-09-13 19:47] LABS: INR 0.96 (0.83-1.09); PROTHROMBIN TIME (PATIENT) 11.3 SEC (9.7-13.0)
[2018-09-13 19:50] LABS: ACTIVATED PTT 27.1 SECONDS (25.2-36.5)
[2018-09-13] MEDS ORDERED: BUTORPHANOL TARTRATE 1 MG/ML VIAL IVPUSH ONE (21:15)
[2018-09-13] MEDS ORDERED: PROMETHAZINE HCL 25 MG/1 ML VIAL IVPUSH ONE (21:15)
--- NOTE | 2018-09-13 21:21 | HP ---
Past Medical History - Primary Care Physician PCP:: Desmond Coleman - Admission Chief Complaint: 40.4 weeks, postdate, cervidil induction History of Present Illness: 33 yo f g 2 p0010 edc by sono with labile HTN admitted for cervidil induction, cervidil risks ,ultrnatives , c/s discussed , agreed to have cervidil induction vc external os 1 FT, internal closed, vx -3 mi, fhr cat 1, irregular contraction not felt by patient History Source: Patient Limitations to Obtaining History: No Limitations - Past Medical History ...: 2 ...Para: 0 ...Term: 0 ...: 0 ...Spon : 1 ...Induced : 0 ...Multiple Gestation: 0 ...LMP: 12/05/17 ... Weeks Gestation by Dates: 40.1 ...EDC by Dates: 09/11/18 ...EDC by Sono: 09/09/18 - Past Surgical History Past Surgical History: Yes: Appendectomy, Cystectomy (multiple laparoscopic ovarian cystectomy for endometriosis) Hx Myomectomy: No Hx Transabdominal Cerclage: No - Smoking History Smoking history: Former smoker Have you smoked in the past 12 months: No Aproximately how many cigarettes per day: 0 If you are a former smoker, when did you quit?: 4.5 years ago - Alcohol/Substance Use Hx Alcohol Use: No - Social History History of Recent Travel: No Home Medications - Allergies Allergies/Adverse Reactions: Allergies Allergy/AdvReac Type Severity Reaction Status Date / Time No Known Drug Allergies Allergy Verified 09/13/18 14:45 - Home Medications Home Medications: Ambulatory Orders Vitamins (Sjr) - 1 tab PO DAILY 05/25/18 Ferrous Sulfate [Feosol] 1 tab PO DAILY 09/13/18 Family Disease History - Family Disease History Family Disease History: Other: Father (, esrd, htn) Review of Systems - Review of Systems Constitutional: reports: No Symptoms Eyes: reports: No Symptoms HENT: reports: No Symptoms Neck: reports: No Symptoms Cardiovascular: reports: No Symptoms Respiratory: reports: No Symptoms Gastrointestinal: reports: No Symptoms Genitourinary: reports: No Symptoms Breasts: reports: No Symptoms Reported Musculoskeletal: reports: No Symptoms Integumentary: reports: No Symptoms Neurological: reports: No Symptoms Endocrine: reports: No Symptoms Hematology/Lymphatic: reports: No Symptoms Psychiatric: reports: No Symptoms Physical Exam - Maternity Vital Signs: Vital Signs Temperature 97.8 F 09/13/18 18:00 Pulse Rate 93 H 09/13/18 21:00 Respiratory Rate 18 09/13/18 21:00 Blood Pressure 137/83 09/13/18 21:00 O2 Sat by Pulse Oximetry (%) Constitutional: Yes: Well Nourished, No Distress Eyes: Yes: WNL HENT: Yes: WNL Neck: Yes: WNL Cardiovascular: Yes: WNL Lungs: Clear to auscultation Breast(s): Yes: WNL - Abdominal Exam/OB Fundal Height: 40 Number of Fetuses: Single Presentation: Vertex Contractions: Yes Regularity: Irritability Intensity: Unaware Monitor Mode: External Heart Rate Location: [facility] Category: I Accelerations: Uniform Decelerations: None - Vaginal Exam/OB Vaginal Bleediing: No Speculum Exam: No Dilatation (cm): closed Effacement (%): 0 Amniotic Membrane Status: Intact Presentation: Vertex/Position Station: -3 - Physical Exam Musculoskeletal: Yes: WNL Extremities: Yes: WNL Edema: No Edema: LLE: Trace, RLE: Trace Deep Tendon Reflex Grade: Normal +2 ...Motor Strength: WNL Psychiatric: Yes: WNL - Labs Lab Results: CBC, BMP 09/13/18 18:30 09/13/18 18:30 Hemorrhage Risk Assessment - Risk Factors Medium Risk Factors: Yes: None High Risk Factors: Yes: None Risk Score: 1 Risk Level: Medium Risk Problem List - Problems (1) Post term over 40 weeks Code(s): O48.0 - POST-TERM (2) Elective induction of labor planned Code(s): FXT1442 - (3) Labile hypertension Code(s): R09.89 - OTH SYMPTOMS AND SIGNS INVOLVING THE CIRC AND RESP SYSTEMS Assessment/Plan admit for cervidil induction, risks discussed GBS negative FHM
--- NOTE | 2018-09-13 21:29 | PN ---
Progress Note (short form) - Note Progress Note: cx closed vx -3 mi, fhr cat 1, cervidil inserted at 915 pm bp 137/83, HELLP lab negative , asymptomatic Problem List - Problems (1) Post term over 40 weeks Code(s): O48.0 - POST-TERM (2) Elective induction of labor planned Code(s): GBU7849 - (3) Labile hypertension Code(s): R09.89 - OTH SYMPTOMS AND SIGNS INVOLVING THE CIRC AND RESP SYSTEMS
[2018-09-14] MEDS ORDERED: DEXTROSE 5%-LACTATED RINGERS 500 ML IV ONE (04:00)
[2018-09-14] MEDS: DEXTROSE 5%-LACTATED RINGERS 1,000 ML IV SCH ×2 (05:00→06:28)
[2018-09-14] MEDS ORDERED: PROMETHAZINE HCL 25 MG/1 ML VIAL ONE ×2 (05:18→15:26)
[2018-09-14] MEDS ORDERED: BUTORPHANOL TARTRATE 1 MG/ML VIAL ONE ×4 (05:18→15:26)
[2018-09-14] MEDS: OXYTOCIN 30 UNITS in 0.9% NS 30 UNIT/500 ML INFUS.BAG IVPB SCH (06:50)
--- NOTE | 2018-09-14 06:53 | PN ---
Progress Note (short form) - Note Progress Note: cx closed , long , vx -3 mi, fhr cat 1, irregular contraction, ,cervidil removed , pitocin rba discussed, will start on pit Problem List - Problems (1) Post term over 40 weeks Code(s): O48.0 - POST-TERM (2) Elective induction of labor planned Code(s): JNT8333 - (3) Labile hypertension Code(s): R09.89 - OTH SYMPTOMS AND SIGNS INVOLVING THE CIRC AND RESP SYSTEMS
[2018-09-14] MEDS ORDERED: PROMETHAZINE HCL 25 MG/1 ML VIAL IVPB ONE (18:45)
[2018-09-14] MEDS ORDERED: BUTORPHANOL TARTRATE 1 MG/ML VIAL IVPUSH ONE (18:45)
[2018-09-15] MEDS: DEXTROSE 5%-LACTATED RINGERS 1,000 ML IV SCH ×2 (01:13→14:37)
[2018-09-15] MEDS ORDERED: BUTORPHANOL TARTRATE 1 MG/ML VIAL IVPUSH ONE (02:45)
[2018-09-15] MEDS ORDERED: PROMETHAZINE HCL 25 MG/1 ML VIAL IVPUSH ONE (02:45)
[2018-09-15] MEDS ORDERED: BUTORPHANOL TARTRATE 1 MG/ML VIAL ONE ×2 (04:33)
[2018-09-15] MEDS ORDERED: PROMETHAZINE HCL 25 MG/1 ML VIAL ONE (04:33)
[2018-09-15] MEDS ORDERED: OXYTOCIN 30 UNITS in 0.9% NS 30 UNIT/500 ML INFUS.BAG IVPB ONE (04:58)
[2018-09-15] MEDS: OXYTOCIN 30 UNITS in 0.9% NS 30 UNIT/500 ML INFUS.BAG IVPB SCH (08:00)
[2018-09-15] MEDS ORDERED: ELECTROLYTE-148 SOLN 1,000 ML IV SCH (08:40)
--- NOTE | 2018-09-15 08:47 | PN ---
Ante-Partal Exam - Subjective Subjective: Patient comfortable No complaints Vital Signs: Vital Signs Temperature 98.7 F 09/15/18 08:00 Pulse Rate 76 09/15/18 08:00 Respiratory Rate 20 09/15/18 08:00 Blood Pressure 107/59 L 09/15/18 08:00 O2 Sat by Pulse Oximetry (%) Bleeding: No Headache: No Visual changes: No Right upper quadrant pain: No - Contractions Contractions: Yes Regularity: Irregular - Exam during Labor Category: I Monitor Accelerations: Absent Monitor Decelerations: None Exam: Vaginal Dilatation (cm): 0.5 Amniotic Membrane Status: Intact Station: -4 - Intrapartum Hemorrhage Risk Medium Risk Factors: None High Risk Factors: None Risk Score: 0 Risk Level: Low Risk - Assessment/Plan Assessment/Plan: 33 yo induction of labor Unchanged cervical exam. Failed nascimento balloon attempt overnight. Currently on pitocin, currently at 12. Discussed options of continuing with induction, attempting nascimento balloon again or delivery. Patient desires to proceed with delivery Discussed risks including but not limited to infection, bleeding requiring transfusion and damage to surrounding organs such as the bowel or bladder. Discussed risk of injury to . Discussed risk of wound infection and separation. Discussed need for planning of future children and possibility of abnormal placentation. All questions answered. Patient expressed understanding. Nursing and OR staff notified. Will proceed to OR
[2018-09-15] MEDS ORDERED: OXYTOCIN 20 UNITS in 0.9% NS 20 UNIT/1,000 ML INFUS.BAG IV ONE (09:25)
[2018-09-15] MEDS ORDERED: OXYTOCIN 20 UNITS in 0.9% NS 40 UNIT/2,000 ML INFUS.BAG IV ONE (09:30)
[2018-09-15] MEDS ORDERED: ceFAZolin SODIUM 1 GM VIAL ONE (09:33)
[2018-09-15] MEDS ORDERED: morphine SULFATE/Preservative Free 0.5 MG/ML (1cc Syringe) ONE (09:33)
[2018-09-15] MEDS ORDERED: PROPOFOL 20 ML ONE (09:33)
[2018-09-15] MEDS ORDERED: ePHEDrine SULFATE 50 MG/1 ML AMPULE ONE (10:22)
[2018-09-15 11:16] LABS: ARTERIAL BLD GAS O2 SATURATION 20.4 % (90-98.9); ARTERIAL BLOOD GAS BASE EXCESS -4.3 meq/l (-2-2); ARTERIAL BLOOD GAS PCO2 66.3 mmHg (35-45); ARTERIAL BLOOD GAS PO2 16.5 mmHg (80-100); ARTERIAL BLOOD GAS pH 7.2 (7.35-7.45)
[2018-09-15 11:22] LABS: VENOUS PC02 50.1 mmHg (38-52); VENOUS PH 7.31 (7.32-7.42); VENOUS PO2 20.8 mmHg (28-48)
[2018-09-15] MEDS ORDERED: METHYLERGONOVINE MALEATE 0.2 MG/1 ML AMP IM PRN (11:23)
[2018-09-15] MEDS ORDERED: SENNOSIDES/DOCUSATE COMBO (SENNA PLUS) TABLET (UD) PO PRN (11:23)
[2018-09-15] MEDS ORDERED: BENZOCAINE 20% 57 GM BOTTLE TP PRN (11:23)
[2018-09-15] MEDS ORDERED: oxyCODONE HCL 5 MG TABLET PO PRN (11:23)
[2018-09-15] MEDS ORDERED: WITCH HAZEL 50% (TUCKS) 40 PAD/JAR PAD TP PRN (11:23)
--- NOTE | 2018-09-15 11:34 | PN ---
Delivery - Delivery Section: Primary EBL (cc): 700 Delivery, Single - Condition of Infant Gender: Female Position: OP - 1 Minute Total Score: 9 5 Minutes Total Score: 9 - Feeding Plan Initial Plan: Exclusive throughout hospitalization Remarks - Remarks Remarks: Surgeon: Nikita; Assist: Guilherme; Anesthesia: Martin Findings: Female infant, OP position, 9,9; wt 10 lbs; 20 inches; Left ovary not identified, right ovary normal EBL 700; UOP 100; IVFluids 2.2 L Dictation: [id number]
[2018-09-15] MEDS ORDERED: ONDANSETRON 4 MG/2 ML VIAL IVPUSH PRN (11:36)
[2018-09-15] MEDS ORDERED: morphine SULFATE/Preservative Free 0.5 MG/ML (1cc Syringe) IT ONE (11:36)
[2018-09-15] MEDS: OXYTOCIN 20 UNITS in 0.9% NS 20 UNIT/1,000 ML INFUS.BAG IV SCH ×2 (12:48→20:30)
[2018-09-15] MEDS: IBUPROFEN 800 MG/8 ML IJ IVPB PRN (20:41)
[2018-09-16] MEDS: DEXTROSE 5%-LACTATED RINGERS 1,000 ML IV SCH (04:25)
[2018-09-16] MEDS: IBUPROFEN 800 MG/8 ML IJ IVPB PRN (07:45)
[2018-09-16] MEDS: SIMETHICONE 80 MG TAB.CHEW (FP) PO PRN ×2 (07:46→15:51)
[2018-09-16 07:54] LABS: BASO % 0.2 % (0-2.0); EOS % 0.9 % (0-4.5); HEMOGLOBIN 11.1 GM/dL (10.7-15.3); LYMPH % 13.7 % (8-40); MCH 30.2 pg (25.7-33.7); MCHC 35.8 g/dl (32.0-36.0); MEAN CELL VOLUME 84.4 fl (80-96); MEAN PLT VOLUME 6.8 fl (7.5-11.1); MONO % 10.6 % (3.8-10.2); NEUT % 74.6 % (42.8-82.8); PLATELET COUNT 343 K/MM3 (134-434); RBC 3.67 M/mm3 (3.60-5.2); RDW 15.1 % (11.6-15.6); WHITE BLOOD COUNT 9.9 K/mm3 (4.0-10.0)
--- NOTE | 2018-09-16 07:58 | PN ---
Post Progress Note - Subjective Subjective: Patient without acute complaints. Tolerating clears, without complaints of nausea or vomiting. No ambulation yet. Denies fevers or chills. without difficulty Pain well controlled Joshi removed this AM, voided without issues. Denies flatus. Post Day: 1 Type of Delivery: Primary C/S Vital Signs: Vital Signs Temperature 99.3 F 09/16/18 03:55 Pulse Rate 94 H 09/16/18 03:55 Respiratory Rate 19 09/16/18 03:55 Blood Pressure 128/75 09/16/18 03:55 O2 Sat by Pulse Oximetry (%) Breast Exam: Yes: Engorged Uterus: Yes: Fundus Firm Incision: Yes: Dressing dry and intact Abdomen/GI: Yes: Abdomen soft, Tender (mild incisional), Passing flatus, Tolerating PO Lochia: Yes: Serosa Lochia, amount: Small Extremities: Yes: Calves non-tender, Edema (trace) Activity: Ambulating - Labs Labs: CBC WBC 7.3 K/mm3 (4.0-10.0) 09/13/18 18:30 RBC 4.27 M/mm3 (3.60-5.2) 09/13/18 18:30 Hgb 11.9 GM/dL (10.7-15.3) 09/13/18 18:30 Hct 35.9 % (32.4-45.2) 09/13/18 18:30 MCV 84.1 fl (80-96) 09/13/18 18:30 MCH 27.9 pg (25.7-33.7) 09/13/18 18:30 MCHC 33.2 g/dl (32.0-36.0) 09/13/18 18:30 RDW 14.9 % (11.6-15.6) D 09/13/18 18:30 Plt Count 347 K/MM3 (134-434) 09/13/18 18:30 MPV 6.9 fl (7.5-11.1) L 09/13/18 18:30 Absolute Neuts (auto) 4.6 K/mm3 (1.5-8.0) 09/13/18 18:30 Neutrophils % 62.6 % (42.8-82.8) D 09/13/18 18:30 Lymphocytes % 26.1 % (8-40) D 09/13/18 18:30 Monocytes % 10.2 % (3.8-10.2) 09/13/18 18:30 Eosinophils % 0.8 % (0-4.5) 09/13/18 18:30 Basophils % 0.3 % (0-2.0) 09/13/18 18:30 Nucleated RBC % 0 % (0-0) 09/13/18 18:30 Retic Count 1.54 % (0.5-1.5) H 09/13/18 18:30 Haptoglobin 134 mg/dL (34-200) 09/13/18 18:30 Assessment/Plan 33 yo POD # 1 s/p primary CD, afebrile, vital signs stable, doing well 1. Continue routine postoperative care. 2. Follow up AM CBC 3. Rh positive status, no rhogam indicated. 4. Encourage ambulation and incentive spirometer use 5. Continue oral pain medication 6. Anticipate discharge home postoperative day #3 or #4
--- NOTE | 2018-09-16 08:03 | PN ---
Progress Note (short form) - Note Progress Note: ANESTHESIOLOGY POST-OP CHECK 33F s/p under spinal anesthesia POD #1. No acute complaints, pain minimal, denies N/V, BA/PEÑALOZA, numbness, wekness Vital Signs Temperature 99.3 F 09/16/18 03:55 Pulse Rate 94 H 09/16/18 03:55 Respiratory Rate 19 09/16/18 03:55 Blood Pressure 128/75 09/16/18 03:55 O2 Sat by Pulse Oximetry (%) Active Medications Acetaminophen (Tylenol -) 650 mg PO Q4H PRN PRN Reason: PAIN Benzocaine (Americaine 20% [place] -) 1 spray TP PRN PRN PRN Reason: Pain - Topical Bisacodyl (Dulcolax Suppository -) 10 mg RC PRN PRN PRN Reason: CONSTIPATION Diphenhydramine HCl (Benadryl Injection -) 25 mg IVPUSH Q4H PRN PRN Reason: Pruritis Last Admin: 09/16/18 00:00 Dose: 25 mg Enoxaparin Sodium (Lovenox -) 30 mg SQ DAILY TED Ibuprofen (Motrin -) 600 mg PO Q4H PRN PRN Reason: PAIN LEVEL 1 - 3 Ibuprofen (Caldolor Injection -) 800 mg IVPB Q8H PRN PRN Reason: PAIN LEVEL 1-5 Last Admin: 09/16/18 07:45 Dose: 800 mg Methylergonovine Maleate (Methergine Injection -) 0.2 mg IM Q4H PRN PRN Reason: Excessive Bleeding (L&D) Ondansetron HCl (Zofran Injection) 4 mg IVPUSH Q4H PRN PRN Reason: NAUSEA Oxycodone HCl (Roxicodone -) 5 mg PO Q4H PRN PRN Reason: PAIN LEVEL 4 - 6 Multivit/Folic Acid/Iron ( Vitamins (Sjr) -) 1 tab PO DAILY TED Senna/Docusate Sodium (Pericolace -) 2 tablet PO HS PRN PRN Reason: CONSTIPATION Simethicone (Mylicon -) 80 mg PO Q4H PRN PRN Reason: GAS Last Admin: 09/16/18 07:46 Dose: 80 mg Witch Sabrina/Glycerin (Tucks Pads -) 1 pad TP PRN PRN PRN Reason: Pain - Topical Gen: awake, alert, NAD Ext. No motor or sensory deficits of B/L lower extremities No apparent anesthesia complications. Pain controlled. Continue management as per primary team.
[2018-09-16] MEDS: PRENATAL VITAMINS W/ FOLIC ACID TABLET (FP) PO SCH (10:10)
[2018-09-16] MEDS: ENOXAPARIN NA (PORCINE) 30 MG/0.3 ML DISP.SYRIN SQ SCH (11:00)
[2018-09-16] MEDS ORDERED: BISACODYL 10 MG SUPP.RECT RC PRN (11:23)
[2018-09-16] MEDS: ACETAMINOPHEN 325 MG TABLET (FP) PO PRN (15:50)
[2018-09-16] MEDS: IBUPROFEN 600 MG TABLET (FP) PO PRN (15:50)
--- NOTE | 2018-09-16 16:38 | OP ---
DATE OF OPERATION: 09/15/2018 PREOPERATIVE DIAGNOSIS: Intrauterine at 40-plus weeks, failed induction of labor. POSTOPERATIVE DIAGNOSIS: Intrauterine at 40-plus weeks, failed induction of labor. SURGEON: Tomasa Shelton MD FLOOR NURSE: Thomas Vanegas MD ANESTHESIA: Martin Martin MD FINDINGS: Female , OP position, Apgars 9 and 9, weight 10 pounds even, 20 inches length. Left ovary not identified, right ovary appears normal. ESTIMATED BLOOD LOSS: 700. URINE OUTPUT: 100. IV FLUIDS: 2.2 L. The patient is a 33-year-old with a history of labile blood pressures at 40-plus weeks for induction of labor. She is status post Cervidil and then Pitocin and did not make any progress. The head was high station. She was counseled regarding surgical intervention or continuing with induction. She desired surgical intervention. She was counseled regarding risks, benefits, alternatives, and complications of procedure including infection, bleeding, damage to surrounding organs such as bowel, bladder, ureter. She expressed understanding and was brought to the operating room. When anesthesia was found to be adequate, patient was prepped and draped in normal sterile fashion, placed in dorsal supine position, leftward tilt. An approximately 11-cm skin incision was made with a knife and carried down to the underlying rectus muscle using Bovie electrocautery. The fascia was nicked in midline, extended laterally using Morgan scissors. Attention was brought to the inferior portion, which was tented up using Jose clamps, dissected off underlying rectus muscle using Morgan scissors. Attention was brought to the superior portion, where in a similar fashion, it was tented up using Jose clamps, dissected off underlying rectus muscles using Morgan scissors. The rectus muscles were in midline, peritoneum was entered bluntly. The peritoneal incision was extended superiorly and inferiorly using the Morgan scissors. Hysterotomy was performed with a knife and the infant's head was found to be in OP position. The infant's head was brought to the hysterotomy site and the head was delivered, followed by shoulders and body without difficulty. The cord was clamped and cut, cord blood and cord gases were collected and sent. The was handed to waiting NICU staff. The placenta was removed. The uterus was cleared of all clot and debris. The uterus was closed using 0 Biosyn in running layers. The 2nd layer was an imbricated layer. Good hemostasis was noted. Bilateral gutters were cleared of all clot and debris. The left adnexa was difficult to identify. Right adnexa revealed a normal-appearing ovary. The hysterotomy was then examined and found to be hemostatic. The peritoneum was closed using 2-0 Biosyn in running fashion. The rectus muscles were reapproximated using 0 Vicryl in an interrupted fashion. The fascia was closed using 0 Vicryl in running fashion. Subcutaneous fat was closed using 0 Vicryl. The skin was reapproximated using 3-0 Vicryl. The patient tolerated the procedure well. Estimated blood loss was 700 mL. The patient was brought to recovery room in stable condition. Fariba [id number]
[2018-09-17] MEDS: SIMETHICONE 80 MG TAB.CHEW (FP) PO PRN ×3 (04:04→17:12)
[2018-09-17] MEDS: IBUPROFEN 600 MG TABLET (FP) PO PRN ×3 (04:04→17:12)
[2018-09-17] MEDS: ACETAMINOPHEN 325 MG TABLET (FP) PO PRN ×3 (04:04→17:13)
--- NOTE | 2018-09-17 07:50 | PN ---
Post Progress Note - Subjective Subjective: Patient without acute complaints. Reports tolerating oral intake without nausea or vomiting. Ambulating without dizziness. Denies fevers or chills. Pain well controlled with oral pain medication. without difficulty. Passing flatus. Post Day: 2 Type of Delivery: Primary C/S Vital Signs: Vital Signs Temperature 98.4 F 09/16/18 21:41 Pulse Rate 81 09/16/18 21:41 Respiratory Rate 19 09/16/18 21:41 Blood Pressure 126/72 09/16/18 21:41 O2 Sat by Pulse Oximetry (%) Breast Exam: Yes: Soft Uterus: Yes: Fundus Firm Incision: Yes: Dressing dry and intact Abdomen/GI: Yes: Abdomen soft, Tender (mild incisional), Passing flatus, Tolerating PO Lochia: Yes: Serosa Extremities: Yes: Calves non-tender, Edema (trace) Activity: Ambulating - Labs Labs: CBC WBC 9.9 K/mm3 (4.0-10.0) 09/16/18 07:00 RBC 3.67 M/mm3 (3.60-5.2) 09/16/18 07:00 Hgb 11.1 GM/dL (10.7-15.3) 09/16/18 07:00 Hct 31.0 % (32.4-45.2) L 09/16/18 07:00 MCV 84.4 fl (80-96) 09/16/18 07:00 MCH 30.2 pg (25.7-33.7) 09/16/18 07:00 MCHC 35.8 g/dl (32.0-36.0) 09/16/18 07:00 RDW 15.1 % (11.6-15.6) 09/16/18 07:00 Plt Count 343 K/MM3 (134-434) 09/16/18 07:00 MPV 6.8 fl (7.5-11.1) L 09/16/18 07:00 Absolute Neuts (auto) 7.4 K/mm3 (1.5-8.0) 09/16/18 07:00 Neutrophils % 74.6 % (42.8-82.8) 09/16/18 07:00 Lymphocytes % 13.7 % (8-40) D 09/16/18 07:00 Monocytes % 10.6 % (3.8-10.2) H 09/16/18 07:00 Eosinophils % 0.9 % (0-4.5) 09/16/18 07:00 Basophils % 0.2 % (0-2.0) 09/16/18 07:00 Nucleated RBC % 0 % (0-0) 09/16/18 07:00 Retic Count 1.54 % (0.5-1.5) H 09/13/18 18:30 Haptoglobin 134 mg/dL (34-200) 09/13/18 18:30 Assessment/Plan 33 yo POD # 2 s/p primary CD, afebrile, vital signs stable, doing well 1. Continue routine postoperative care. 2. Encourage ambulation and incentive spirometer use 3. Continue oral pain medication 4. Anticipate discharge home postoperative day #3 or #4
[2018-09-17] MEDS: ENOXAPARIN NA (PORCINE) 30 MG/0.3 ML DISP.SYRIN SQ SCH (10:00)
[2018-09-17] MEDS: PRENATAL VITAMINS W/ FOLIC ACID TABLET (FP) PO SCH (10:21)
[2018-09-17 21:06] VITALS: PULSE 81
[2018-09-18] MEDS: IBUPROFEN 600 MG TABLET (FP) PO PRN ×2 (00:13→08:16)
[2018-09-18] MEDS: ACETAMINOPHEN 325 MG TABLET (FP) PO PRN ×2 (00:14→08:19)
--- NOTE | 2018-09-18 08:07 | DS ---
Physical Exam-STOCKHOLDER Vital Signs: Vital Signs Temperature 97.9 F 09/17/18 21:05 Pulse Rate 81 09/17/18 21:05 Respiratory Rate 19 09/17/18 21:05 Blood Pressure 131/84 09/17/18 21:05 O2 Sat by Pulse Oximetry (%) Constitutional: Yes: Well Nourished, No Distress, Calm Eyes: Yes: WNL, Conjunctiva Clear, EOM Intact HENT: Yes: WNL, Atraumatic, Normocephalic Neck: Yes: WNL, Supple, Trachea Midline Cardiovascular: Yes: WNL, Regular Rate and Rhythm Respiratory: Yes: WNL, Regular, CTA Bilaterally Gastrointestinal: Yes: WNL, Normal Bowel Sounds, Soft Renal/: Yes: WNL Pelvis: Yes: WNL External Genitalia: Yes: Normal ....Post : Yes: Uterus firm, Uterus non-tender Breast(s): Yes: WNL Musculoskeletal: Yes: WNL Extremities: Yes: WNL Integumentary: Yes: WNL Wound/Incision: Yes: Clean/Dry, Well Approximated Neurological: Yes: WNL, Alert, Oriented ...Motor Strength: WNL Psychiatric: Yes: WNL, Alert, Oriented Labs: CBC, BMP 09/16/18 07:00 09/13/18 18:30 Delivery - Delivery Section: Primary Type of Anesthesia: Spinal Episiotomy/Laceration: None EBL (cc): 700 Delivery, Single - Stages of Labor Date 1st Stage Initiatied: 09/15/18 Time 1st Stage Initiated: 05:50 Date of Delivery: 09/15/18 Time of Delivery: 10:45 Time Placenta Delivered: 10:47 Placenta: Yes: Expressed - Condition of Infant Strength And Conditioning Coach/Director Presales Present: Yes Name: Geetha Baez Gender: Female Weight: 10 lb Position: OP Total Hours ROM (Hrs/Mins): 1 min. - 1 Minute Total Score: 9 5 Minutes Total Score: 9 - Feeding Plan Initial Plan: Exclusive throughout hospitalization Discharge Summary Reason For Visit: LABOR Current Active Problems Elective induction of labor planned (Acute) Labile hypertension (Acute) Post term over 40 weeks (Acute) Condition: Good - Instructions Diet, Activity, Other Instructions: Physical activity Resume your normal everyday activity as tolerated no heavy lifting or exercise until seen by your surgeon. You may walk unlimited liliana of and climb stairs. You may resume driving the car when you feel safe and comfortable behind the wheel. No sexual activity as instructed. Wound care If you have a bandage, leave it on, and keep dry for 48-72 hours. After that time discard the outer bandage. If they are tapes on the skin under the out of bandage leave them in place. They will peel off in the next 7 to 10 days. Do Not Peel them off. You may shower the day after surgery. If there are tapes present on the skin, you may shower over them. Diet There are no dietary restrictions. Eat healthy, high-fiber foods. Drink 6 to 8 glasses of liquid each day. This will assist in keeping your bowels are regular. Pain management You may take Tylenol or acetaminophen or Ibuprofen (for example, Motrin, Advil etc.) from my pain prescription medication is ordered should be taken as prescribed for moderate to severe pain. Call MD for any of the following: Severe pain not relieved by medication Fever of 101 or higher Excessive bleeding or drainage on dressing Inability to urinate Referrals: Desmond Coleman MD [Staff Physician] - Disposition: HOME - Home Medications Comprehensive Discharge Medication List: Ambulatory Orders Ferrous Sulfate [Feosol] 1 tab PO DAILY 09/13/18 Vitamins (Sjr) - 1 tab PO DAILY 09/14/18
[2018-09-18 08:16] LABS: BASO % 0.6 % (0-2.0); EOS % 4.3 % (0-4.5); HEMATOCRIT 26.3 % (32.4-45.2); HEMOGLOBIN 8.7 GM/dL (10.7-15.3); MCH 27.9 pg (25.7-33.7); MCHC 33.3 g/dl (32.0-36.0); MEAN CELL VOLUME 83.9 fl (80-96); MEAN PLT VOLUME 6.4 fl (7.5-11.1); MONO % 10.2 % (3.8-10.2); NEUT % 54.9 % (42.8-82.8); PLATELET COUNT 318 K/MM3 (134-434); RBC 3.13 M/mm3 (3.60-5.2); WHITE BLOOD COUNT 5.2 K/mm3 (4.0-10.0)
[2018-09-18] MEDS: SIMETHICONE 80 MG TAB.CHEW (FP) PO PRN (08:19)
[2018-09-18] MEDS: PRENATAL VITAMINS W/ FOLIC ACID TABLET (FP) PO SCH (10:44)
[2018-09-18] MEDS: ENOXAPARIN NA (PORCINE) 30 MG/0.3 ML DISP.SYRIN SQ SCH (10:44)
[2018-09-18 12:28] VITALS: BP 139/92; TEMP 98.3
--- NOTE | 2018-09-20 15:24 | PATH ---
Surgical Pathology Report Patient Name: SKIP WALLER [facility]. Rec. #: [id number] /Age/Gender: 1985 (Age: 33) / F Account: [id number] Location: [facility] OBS/PBX INSPECTOR Taken: 09/15/2018 Received: 09/17/2018 Reported: 09/20/2018 Physicians: Tomasa Coleman M.D. Specimen(s) Received PLACENTA Clinical History , 40.4 gestational weeks, failed induction Final Diagnosis PLACENTA: THIRD TRIMESTER PLACENTA. TRIVASCULAR CORD. MEMBRANES WITH NO DIAGNOSTIC ABNORMALITIES. Electronically Signed Vita Fong M.D. Gross Description The specimen is received fresh labeled placenta and is a 618 gram, 20.0 x 15.0 x 2.6 cm. placenta with attached membranes and umbilical cord. The attached membranes are nguyen, translucent with focal opacities and insert marginally. The umbilical cord measures 14.5 cm. in length and averages 1.5 cm. in diameter. There is an additional 25.5 cm in length portion of the umbilical cord separately received within the same container. The cord inserts eccentrically, 3 cm. to the nearest margin. No true knots or strictures are identified. Cut surface of the umbilical cord reveals 3 vessels. The surface is chavez blue with moderate fibrin deposition and appropriate caliber vessels. The maternal surface is red-brown with focal defects. Sectioning reveals red-brown, spongy parenchyma. No lesions are identified. Crayon Molding Machine Operator sections are submitted in three cassettes as follows: 1- membrane rolls and umbilical cord; 2-3- full thickness sections of placenta. [facility]
== END 2018-09-18 12:30 | disposition home or self-care (01) | DRG 788 ==
LOC: JDEL 13:52 → JLDR 16:25 → J3W 09-15 13:15
PROVIDERS: ADMIT Obstetrics & Gynecology; ATTEND Obstetrics & Gynecology
PROC: 10D00Z1 Extraction of Products of Conception, Low, Open Approach (ICD-10-PCS; principal; 2018-09-15)
PROC: 3E0P7VZ Introduction of Hormone into Female Reproductive, Via Natural or Artificial Opening (ICD-10-PCS; 2018-09-15)
DX: O48.0 Post-term pregnancy (principal); O26.893 Other specified pregnancy related conditions, third trimester; R09.89 Other specified symptoms and signs involving the circulatory and respiratory systems; O61.0 Failed medical induction of labor; Z87.891 Personal history of nicotine dependence; Z3A.40 40 weeks gestation of pregnancy; Z37.0 Single live birth
CPT/HCPCS: 36415; 36600; 80053; 81003; 82803; 82977; 83010; 84550; 85025; 85044; 85610; 85730; 86593; 86850; 86900; 86901; 87389; 88307-TC

== ENCOUNTER 2019-07-04 09:46 | Emergency (ER) | payer BC ==
[2019-07-04 10:10] VITALS: BP 129/83; PULSE 98; TEMP 98.6; BMI 28.3
[2019-07-04] MEDS ORDERED: KETOROLAC TROMETHAMINE 30 MG/1 ML VIAL IM ONE (10:46)
--- NOTE | 2019-07-04 10:56 | PDOC ---
History of Present Illness - General Chief Complaint: Chest Pain Stated Complaint: CHEST & PELVIC PAIN Time Seen by Provider: 07/04/19 09:49 - History of Present Illness Initial Comments: 07/04/19 10:50 33 F with h/o PCOS, endometriosis, appendectomy, presenting to the ED with 4 days of L sided chest wall pain, as well as vaginal discharge and discomfort. Pt states that she was lifting her child on Monday when she began to feel pain in her L chest wall radiating to her L arm. Denies any SOB. Denies exertional or pleuritic nature of pain. States the pain is worse with direct palpation and certain movements of her arm. Denies leg swelling, denies h/o DVT/PE, denies estrogen use. Pt also reports vaginal discharge that she describes as whitish brown. Denies foul smell. Denies abdominal pain. Denies vaginal bleeding. LMP 1 month ago. Is sexually active. H/o HPV but no other STDs. Past History - Past Medical History Allergies/Adverse Reactions: Allergies Allergy/AdvReac Type Severity Reaction Status Date / Time No Known Drug Allergies Allergy Verified 07/04/19 10:13 Home Medications: Ambulatory Orders Calcium Carb/D3/Magnesium/Zinc [Sánchez Mag Zinc + D3 Tablet] 1 each PO HS 07/04/19 Metformin HCl [Glucophage] 500 mg PO HS 07/04/19 Multivit,Calc,Mins/Iron/Folic [One-A-Day Women's] 1 each PO HS 07/04/19 Naltrexone PO HS 07/04/19 Progesterone PO HS 07/04/19 Spironolactone [Aldactone] 25 mg PO HS 07/04/19 Anemia: No Asthma: No Cancer: No Cardiac Disorders: No CVA: No COPD: No CHF: No Dementia: No Diabetes: No GI Disorders: No Disorders: Yes (PCOS, ENDOMETRIOSIS) HTN: No Hypercholesterolemia: No Liver Disease: No Seizures: No Thyroid Disease: No - Surgical History Abdominal Surgery: No Appendectomy: Yes Cardiac Surgery: No Cholecystectomy: No Lung Surgery: No Neurologic Surgery: No Orthopedic Surgery: No - Reproductive History Is Patient Now?: No (#): 2 Para: 1 Polycystic Ovaries: Yes Spontaneous : 1 - Immunization History Td Vaccination: Yes Immunization Up to Date: Yes - Suicide/Smoking/Psychosocial Hx Smoking Status: Yes Smoking History: Former smoker Have you smoked in the past 12 months: No Number of Cigarettes Smoked Daily: 0 If you are a former smoker, when did you quit?: 2013 Information on smoking cessation initiated: No 'Breaking Loose' booklet given: 02/17/15 Hx Alcohol Use: Yes (RARE) Drug/Substance Use Hx: No Substance Use Type: None Hx Substance Use Treatment: No Review of Systems - Review of Systems Comments:: 07/04/19 10:53 "GENERAL/CONSTITUTIONAL: No fever or chills. No weakness. HEAD, EYES, EARS, NOSE AND THROAT: No change in vision. No ear pain or discharge. No sore throat. CARDIOVASCULAR: + chest wall pain, no shortness of breath, no loss of consciousness RESPIRATORY: No cough, wheezing, or hemoptysis. GASTROINTESTINAL: No nausea, vomiting, diarrhea or constipation. GENITOURINARY: + vaginal discharge, No dysuria, frequency, or change in urination. MUSCULOSKELETAL: No joint or muscle swelling or pain. No neck or back pain. SKIN: No rash NEUROLOGIC: No vertigo, no change in strength/sensation. ENDOCRINE: No increased thirst. No abnormal weight change. HEMATOLOGIC/LYMPHATIC: No anemia, easy bleeding, or history of blood clots. ALLERGIC/IMMUNOLOGIC: No hives or skin allergy. *Physical Exam - Vital Signs Last Vital Signs Temp Pulse Resp BP Pulse Ox 98.6 F 98 H 16 129/83 100 07/04/19 09:48 07/04/19 09:48 07/04/19 09:48 07/04/19 09:48 07/04/19 09:48 - Physical Exam Comments: 07/04/19 10:53 "GENERAL: Awake, alert, and fully oriented, in no acute distress. HEAD: No signs of trauma EYES: PERRLA, EOMI, sclera anicteric, conjunctiva clear ENT: Auricles normal inspection, hearing grossly normal, nares patent, oropharynx clear without exudates. Moist mucosa NECK: Nontender, no stepoffs, Normal ROM, supple, no lymphadenopathy, JVD, or masses LUNGS: Breath sounds equal, clear to auscultation bilaterally. No wheezes, and no crackles HEART: + L anterior chest wall tenderness, no crepitus, Regular rate and rhythm , normal S1 and S2, no murmurs, rubs or gallops ABDOMEN: Soft, nontender, normoactive bowel sounds. No guarding, no rebound. No masses EXTREMITIES: Normal range of motion, no edema. No clubbing or cyanosis. No cords, erythema, or tenderness NEUROLOGICAL: Cranial nerves II through XII intact. 5/5 strength and sensation in all extremities, Normal speech, normal gait, normal cerebellar function SKIN: Warm, Dry, normal turgor, no rashes or lesions noted. : + white cottage-cheese discharge, no bleeding, no CMT, no adnexal masses or tenderness Heart Score/ECG Review - History History: Slightly suspicious - Electrocardiogram EKG: Normal - Age Age: </= 45 - Risk Factors Based on the list above the patient has:: No risk factors known - Troponin Troponin: </= normal limit - Score Heart Score - Total: 0 - ECG Impressions Comment:: 07/04/19 11:00 NSR, no MEGHAN/STDs, no TWIs, axis wnl, intervals wnl, rate 80 ED Treatment Course - LABORATORY CBC & Chemistry Diagram: 07/04/19 10:50 07/04/19 10:50 - ADDITIONAL ORDERS Additional order review: Laboratory Results 07/04/19 10:35 Urine Color Yellow Urine Appearance Clear Urine pH 6.5 Urine Protein Negative Urine Glucose (UA) Negative Urine Ketones Negative Urine Blood Negative Urine Nitrite Negative Urine Bilirubin Negative Urine Urobilinogen 0.2 Ur Leukocyte Esterase Negative - RADIOLOGY Radiology Studies Ordered: Category Date Time Status CHEST PA & LAT [RAD] Stat Radiology 07/04/19 10:46 Ordered Medical Decision Making - Medical Decision Making 07/04/19 10:54 33 F with L chest wall pain, likely msk in etiology. Will r/o ACS with trop and EKG. CXR to r/o PTX or other pulmonary pathology. Pt also with vaginal discharge, exam consistent with yeast infection. Will check for GC/CT. Pt declining HIV test. - Labs, trop - UA, UPT - GC/CT - CXR - Toradol - Diflucan 07/04/19 11:30 Labs wnl CXR normal on my read Pt is well appearing, with normal vitals. Clinically stable for DC at this time. I discussed the physical exam findings, ancillary test results and final diagnoses with the patient. I answered all of the patient's questions. The patient was satisfied with the care received and felt comfortable with the discharge plan and treatment plan. The patient agrees to follow up with the primary care physician within 24-72 hours. *DC/Admit/Observation/Transfer Diagnosis at time of Disposition: Chest wall pain, Vaginal discharge, Yeast infection - Discharge Dispostion Disposition: HOME Condition at time of disposition: Good - Referrals Referrals: Chanel Gordillo MD [Primary Care Provider] - - Patient Instructions Printed Discharge Instructions: DI for Vaginal Yeast Infection, DI for Atypical Chest Pain Additional Instructions: Your chest X-ray, bloodwork, and EKG were all normal today. Your chest pain is most likely muscular. Take the naproxen as prescribed for pain. Avoid doing any heavy lifting or strenuous exercise with your left arm. If you experience worsening pain, shortness of breath, or any other concerning symptoms, return to the ER immediately. Otherwise, follow up with your primary doctor within 1 week. You were also treated for a yeast infection today. Follow up with your OB within 1 week for re-evaluation. - Post Discharge Activity - Attestations Physician Attestion: 07/04/19 11:06 I, Dr. Yassine Angulo MD, attest that this document has been prepared under my direction and personally reviewed by me in its entirety. I further attest, that it accurately reflects all work, treatment, procedures and medical decision -making performed by me.
[2019-07-04] MEDS ORDERED: FLUCONAZOLE 150 MG TABLET PO ONE ×2 (10:59→11:08)
[2019-07-04 11:04] LABS: BASO % 0.5 % (0-2.0); EOS % 0.7 % (0-4.5); HEMOGLOBIN 13.9 GM/dl (10.7-15.3); LYMPH % 41.8 % (8-40); MCH 29.3 pg (25.7-33.7); MCHC 33.9 g/dl (32.0-36.0); MEAN CELL VOLUME 86.5 fl (80-96); MEAN PLT VOLUME 7.4 fl (7.5-11.1); MONO % 8.2 % (3.8-10.2); NEUT % 48.8 % (42.8-82.8); PLATELET COUNT 388 K/MM3 (134-434); RBC 4.74 M/mm3 (3.60-5.2); RDW 13.1 % (11.6-15.6); WHITE BLOOD COUNT 4.5 K/mm3 (4.0-10.8)
[2019-07-04] MEDS ORDERED: KETOROLAC TROMETHAMINE 30 MG/1 ML VIAL ONE (11:08)
[2019-07-04 11:11] LABS: ALBUMIN 3.9 g/dl (3.4-5.0); BILIRUBIN,TOTAL 0.6 mg/dl (0.2-1); CALCIUM 9.1 mg/dl (8.5-10); CREATININE 0.9 mg/dl (0.55-1.3); TOT PROT 7.6 g/dl (6.4-8.2)
--- NOTE | 2019-07-04 16:59 | EKG ---
Test Reason : Blood Pressure : / mmHG Vent. Rate : 080 BPM Atrial Rate : 080 BPM P-R Int : 130 ms QRS Dur : 072 ms QT Int : 352 ms P-R-T Axes : 008 069 039 degrees QTc Int : 405 ms NORMAL SINUS RHYTHM NORMAL ECG WHEN COMPARED WITH ECG OF 11-NOV-2010 07:31, NO SIGNIFICANT CHANGE WAS FOUND Confirmed by MARGARET MC MD ([id number]) on 07/04/2019 4:59:37 PM Referred By: MARK RINCON Confirmed By:MARGARET MC MD
== END 2019-07-04 11:37 | disposition home or self-care (01) ==
LOC: FER 09:46
PROC: 3E0233Z Introduction of Anti-inflammatory into Muscle, Percutaneous Approach (ICD-10-PCS; principal; 2019-07-04)
DX: R07.9 Chest pain, unspecified (principal); R07.89 Other chest pain; N89.8 Other specified noninflammatory disorders of vagina; B37.9 Candidiasis, unspecified; Z87.891 Personal history of nicotine dependence
CPT/HCPCS: 36415; 71046-TC-FY; 80053; 81003; 82550; 84484; 84703; 85025; 87491; 87591; 93005; 99283-25

== ENCOUNTER 2020-07-20 11:01 | Emergency (ER) | payer BC ==
[2020-07-20] MEDS ORDERED: IBUPROFEN 600 MG TABLET (FP) PO ONE ×2 (11:05→11:14)
--- NOTE | 2020-07-20 11:08 | PDOC ---
Attending Attestation - Resident Resident Name: Mariam Morales - ED Attending Attestation I have performed the following: I have examined & evaluated the patient, The case was reviewed & discussed with the resident, I agree w/resident's findings & plan, Exceptions are as noted - HPI HPI: 07/20/20 11:05 34 yo F p/w R sided neck pain since yesterday afternoon. Denies any numbness or weakness in extremities. Denies any falls or direct trauma but reports she was studying yesterday for many hours and leaning forward. Took tylenol for pain with insufficient relief. Is able to to move her neck but reports pain when doing so. - Physicial Exam PE: 07/20/20 11:22 General: well appearing HEENT: NCAT Neck: supple, FROM, no midline tenderness, mild hypertonicity of trapezius on R with trace ttp Extremities: FROM, strength preserved, sensation intact to light touch - Medical Decision Making 07/20/20 11:24 34 yo F with R sided neck pain, neurologically intact, likely muscle strain. Plan: -motrin -d/c with return precautions, recommend tylenol or motrin at home as needed for pain and light stretching as tolerated, recommend PMD f/u This clinical encounter is taking place during a federal and state health care emergency attributable to the novel [place] Virus pandemic. The Motor Vehicle Technician of the Department of Health and Human Services has declared, pursuant to the Public Health Service Act 319F-3 (42 U.S.C. 247d-6d), that a covered persons activities related to medical countermeasures against COVID-19 will be immune from liability under Federal and State law. Discharge - Discharge Information Problems reviewed: Yes Clinical Impression/Diagnosis: Neck pain Condition: Good Disposition: HOME - Follow up/Referral Referrals: Milana Gordillo MD [Primary Care Provider] - - Patient Discharge Instructions Additional Instructions: You were seen in the ER today for neck pain. This is likely from the muscles straining while you were studying. Remember to straighten out your neck and do light stretches when studying to reduce neck strain and muscle tension. I recommend applying a heating pad to ease the muscles and do light stretches. You can also do a light massage. You can take Advil or Motrin for the pain, this is completely safe to take during COVID. Come back to the ER if you have worsening pain, start having vertigo, have numbness or weakness in your arms/legs or if any new or concerning symptom develops. Thank you - Post Discharge Activity
--- NOTE | 2020-07-20 11:08 | PDOC ---
History of Present Illness - General Chief Complaint: Pain, Acute Stated Complaint: NECK PAIN Time Seen by Provider: 07/20/20 11:05 History Source: Patient Exam Limitations: No Limitations - History of Present Illness Initial Comments: 07/20/20 11:06 34y F with PMH of endometriosis presenting to the ER today for R sided neck pain which began yesterday afternoon while studying. She states she was taking Tylenol without relief. Denies neck injury, headache, syncope, numbness/tingling, weakness, fever, difficulty breathing, n/v, changes in vision. Meds: progesterone, naltrexone Allergies: nkda Past History - Medical History Allergies/Adverse Reactions: Allergies Allergy/AdvReac Type Severity Reaction Status Date / Time No Known Drug Allergies Allergy Verified 07/20/20 11:02 Home Medications: Ambulatory Orders Progesterone 0 mg PO HS 07/04/19 Ibuprofen 600 mg PO TID #15 tablet 07/20/20 Naltrexone [Naltrexone Base Monohydrate] 0 mg MC ASDIR 07/20/20 Anemia: No Asthma: No Cancer: No Cardiac Disorders: No CVA: No COPD: No CHF: No Dementia: No Diabetes: No GI Disorders: No Disorders: Yes (PCOS, ENDOMETRIOSIS) HTN: No Hypercholesterolemia: No Liver Disease: No Seizures: No Thyroid Disease: No - Surgical History Abdominal Surgery: No Appendectomy: Yes Cardiac Surgery: No Cholecystectomy: No Lung Surgery: No Neurologic Surgery: No Orthopedic Surgery: No - Reproductive History (#): 2 Para: 1 Polycystic Ovaries: Yes Spontaneous : 1 - Immunization History Td Vaccination: Yes Immunization Up to Date: Yes - Psycho-Social/Smoking History Smoking Status: Yes Smoking History: Former smoker Have you smoked in the past 12 months: No Number of Cigarettes Smoked Daily: 0 If you are a former smoker, when did you quit?: 2013 'Breaking Loose' booklet given: 02/17/15 Review of Systems - Review of Systems Able to Perform ROS?: Yes Constitutional: No: Symptoms Reported HEENTM: Yes: See HPI Respiratory: No: Symptoms reported Cardiac (ROS): No: Symptoms Reported ABD/GI: No: Symptoms Reported Musculoskeletal: Yes: See HPI, Muscle Pain, Neck Pain Integumentary: No: Symptoms Reported Neurological: No: Symptoms reported *Physical Exam - Physical Exam General Appearance: Yes: Nourished, Appropriately Dressed. No: Apparent Distress HEENT: positive: EOMI, BELINDA Neck: positive: Tender (R sided tenderness along upper trapezius/levator scapulae. no masses. ), Trachea midline, Supple, Tender lateral. negative: Carotid bruit, Decreased range of motion, Stridor, Tender midline Respiratory/Chest: positive: Lungs Clear, Normal Breath Sounds. negative: Crackles, Rales, Rhonchi, Stridor, Wheezing Cardiovascular: positive: Regular Rhythm, Regular Rate, S1, S2. negative: Edema, JVD, Murmur Gastrointestinal/Abdominal: positive: Normal Bowel Sounds, Soft. negative: Tender Musculoskeletal: negative: CVA Tenderness, Decreased Range of Motion, Muscle Spasm, Vertebral Tenderness Extremity: negative: Pedal Edema, Swelling Integumentary: positive: Normal Color, Dry, Warm Neurologic: positive: fitness and wellness manager II-XII NML intact, Fully Oriented, Alert, Normal Mood/Affect, Normal Response, Motor Strength 03/17 Medical Decision Making - Medical Decision Making 07/20/20 11:10 34y f with pmh of endometriosis presenting to the er for neck pain. vitals wnl pe significant for tenderness to palpation of r sided upper trapezius/levator scapulae and tense muscles. suspect muscle strain. no torticollis, do not suspect thyromegaly given exam findings and presentation. will give motrin. will dc pt home with rx for motrin, advise to apply heating pad and do light stretches. will provide with return precautions. Discharge - Discharge Information Problems reviewed: Yes Clinical Impression/Diagnosis: Neck pain Condition: Good Disposition: HOME - Admission No - Additional Discharge Information Prescriptions: Ibuprofen 600 mg PO TID #15 tablet - Follow up/Referral Referrals: Milana Gordillo MD [Primary Care Provider] - - Patient Discharge Instructions Additional Instructions: You were seen in the ER today for neck pain. This is likely from the muscles straining while you were studying. Remember to straighten out your neck and do light stretches when studying to reduce neck strain and muscle tension. I recommend applying a heating pad to ease the muscles and do light stretches. You can also do a light massage. You can take Advil or Motrin for the pain, this is completely safe to take during COVID. Come back to the ER if you have worsening pain, start having vertigo, have numbness or weakness in your arms/legs or if any new or concerning symptom develops. Thank you - Post Discharge Activity
[2020-07-20 11:12] VITALS: BP 129/89; PULSE 94; TEMP 97.9; BMI 30.9
== END 2020-07-20 11:42 | disposition home or self-care (01) ==
LOC: FER 11:01
DX: M54.2 Cervicalgia (principal)
CPT/HCPCS: 99283-25

== ENCOUNTER 2021-09-01 16:16 | Emergency (ER) | payer BC ==
[2021-09-01 16:37] VITALS: BP 145/87; PULSE 97; TEMP 99.4; BMI 31.8
[2021-09-01] MEDS ORDERED: NAPROXEN 500 MG TABLET PO ONE (16:44)
[2021-09-01] MEDS ORDERED: LIDOCAINE 5% TOPICAL PATCH TP ONE (16:45)
[2021-09-01] MEDS ORDERED: NAPROXEN 500 MG TABLET ONE (16:49)
[2021-09-01] MEDS ORDERED: LIDOCAINE 5% TOPICAL PATCH ONE (16:50)
[2021-09-01] MEDS ORDERED: LIDOCAINE PATCH REMOVAL MC SCH (22:00)
== END 2021-09-01 17:39 | disposition home or self-care (01) ==
LOC: FER 16:16
DX: N64.4 Mastodynia (principal)
CPT/HCPCS: 84703; 99283-25

== ENCOUNTER 2022-04-11 11:20 | Emergency (ER) | payer BC ==
[2022-04-11 11:46] VITALS: BP 158/90; PULSE 100; TEMP 98.5; BMI 32.8
[2022-04-11] MEDS ORDERED: ACETAMINOPHEN 325 MG TABLET (FP) PO ONE (12:30)
[2022-04-11] MEDS ORDERED: ACETAMINOPHEN 325 MG TABLET (FP) ONE (12:33)
[2022-04-11 13:33] LABS: INR 1.05 (0.83-1.09); PROTHROMBIN TIME (PATIENT) 12.1 SEC (9.7-13.0)
[2022-04-11 13:35] LABS: ACTIVATED PTT 28.8 SECONDS (25.2-36.5)
[2022-04-11 13:36] LABS: ALBUMIN 4.2 g/dl (3.4-5.0); BILIRUBIN,TOTAL 0.8 mg/dl (0.2-1); CALCIUM 9.9 mg/dl (8.5-10); CREATININE 0.9 mg/dl (0.55-1.3); TOT PROT 7.9 g/dl (6.4-8.2)
[2022-04-11 13:52] LABS: HEMATOCRIT 45.8 % (32.4-45.2); HEMOGLOBIN 16.1 G/dL (10.7-15.3); MCH 30.6 pg (25.7-33.7); MCHC 35.2 g/dl (32.0-36.0); MEAN PLT VOLUME 7.4 fl (7.5-11.1); PLATELET COUNT 359.2 10^3/uL (134-434); RBC 5.27 10^6/uL (3.60-5.2); RDW 14.4 % (11.6-15.6); WHITE BLOOD COUNT 6.4 10^3/uL (4.0-10.8)
== END 2022-04-11 14:55 | disposition home or self-care (01) ==
LOC: FER 11:20
DX: R07.9 Chest pain, unspecified (principal)
CPT/HCPCS: 36415; 71046-TC-FY; 80053; 84484; 84703; 85025; 85379; 85610; 85730; 86850; 86900; 86901; 93005; 99285-25

== ENCOUNTER 2023-12-15 15:50 | Emergency (ER) | payer BC ==
[2023-12-15 16:19] VITALS: BP 118/80; PULSE 70; RESP 15; TEMP 98.5; BMI 32.8
[2023-12-15] MEDS ORDERED: ACETAMINOPHEN 325 MG TABLET (FP) PO ONE (16:58)
[2023-12-15] MEDS ORDERED: IBUPROFEN 400 MG TABLET (FP) PO ONE ×2 (18:04→18:07)
== END 2023-12-15 18:14 | disposition home or self-care (01) ==
LOC: FER 15:50
DX: S09.90XA Unspecified injury of head, initial encounter (principal); R51.9 Headache, unspecified; M54.2 Cervicalgia; W23.2XXA Caught, crushed, jammed or pinched between a moving and stationary object, initial encounter; Y93.I9 Activity, other involving external motion; Y93.89 Activity, other specified
CPT/HCPCS: 70450-TC; 99284-25

== ENCOUNTER 2024-07-08 14:40 | Emergency (ER) | payer BC ==
[2024-07-08 14:58] VITALS: BP 137/92; PULSE 82; RESP 18; TEMP 98.8; BMI 31.8
[2024-07-08] MEDS ORDERED: ACETAMINOPHEN 325 MG TABLET (FP) ONE (16:40)
[2024-07-08] MEDS: ACETAMINOPHEN 325 MG TABLET (FP) PO ONE (16:43)
[2024-07-08 16:44] LABS: HEMATOCRIT 43.1 % (32.4-45.2); HEMOGLOBIN 14.4 G/dL (10.7-15.3); MCH 29.8 pg (25.7-33.7); MCHC 33.4 g/dl (32.0-36.0); MEAN CELL VOLUME 89.3 fl (80-96); PLATELET COUNT 341.2 10^3/uL (134-434); RBC 4.83 10^6/uL (3.60-5.2); RDW 13.8 % (11.6-15.6); WHITE BLOOD COUNT 5.7 10^3/uL (4.0-10.8)
[2024-07-08 16:54] LABS: PLATELET ESTIMATE ADEQUATE
[2024-07-08 17:05] LABS: ALBUMIN 4.4 g/dl (3.4-5.0); BILIRUBIN,TOTAL 0.4 mg/dl (0.2-1); CALCIUM 9.5 mg/dl (8.5-10.1); CREATININE 1.1 mg/dl (0.6-1.3); POTASSIUM 4.2 mmol/L (3.5-5.1); TOT PROT 7.4 g/dl (6.4-8.2)
== END 2024-07-08 17:54 | disposition home or self-care (01) ==
LOC: FER 14:40
DX: R07.89 Other chest pain (principal); M79.662 Pain in left lower leg; Z20.822 Contact with and (suspected) exposure to COVID-19
CPT/HCPCS: 0241U-QW; 36415; 71046-TC-FY; 80053; 84484; 85027; 85379; 93005; 99285-25

== ENCOUNTER 2025-05-19 14:27 | Emergency (ER) | payer BC ==
[2025-05-19 14:45] VITALS: BP 120/75; PULSE 70; RESP 16; TEMP 98.6; BMI 32.8
[2025-05-19] MEDS ORDERED: METOCLOPRAMIDE HCL INJECTION 10 MG/2 ML VIAL ONE (15:44)
[2025-05-19] MEDS ORDERED: ACETAMINOPHEN INJECTION 100 ML ONE (15:45)
[2025-05-19] MEDS: SODIUM CHLORIDE 0.9% 500 ML INFUS.BAG IV ONE (15:55)
[2025-05-19] MEDS: METOCLOPRAMIDE HCL INJECTION 10 MG/2 ML VIAL IVPUSH ONE (16:00)
[2025-05-19] MEDS: ACETAMINOPHEN 1000 MG/100 ML BAG IVPB ONE (16:08)
== END 2025-05-19 17:30 | disposition home or self-care (01) ==
LOC: FER 14:27
PROC: 3E033NZ Introduction of Analgesics, Hypnotics, Sedatives into Peripheral Vein, Percutaneous Approach (ICD-10-PCS; principal; 2025-05-19)
PROC: 3E033GC Introduction of Other Therapeutic Substance into Peripheral Vein, Percutaneous Approach (ICD-10-PCS; 2025-05-19)
DX: R51.9 Headache, unspecified (principal)
CPT/HCPCS: 99284-25